=== PATIENT | male | born 1935 | race Caucasian/White ===

== ENCOUNTER 2019-11-11 08:03 | Outpatient (CLI) | payer MEDICARE, SELFPAY ==
[2019-11-11 08:49] LABS: Hematocrit 38.3 % (42.0-52.0); Mean Corpuscular HGB Conc 31.3 g/dl (32-36); Mean Corpuscular Hemoglobin 29.8 pg (26-34); Mean Platelet Volume 10.6 fl (7.4-10.4); Platelet Count Result 204 k/mm3 (150-375); Red Blood Count 4.03 M/mm3 (4.6-6.20); Red Cell Distribution Width 13.4 % (11.5-14.5); White Blood Count 9.2 K/mm3 (4.5-10.0)
[2019-11-11 09:00] LABS: Creatinine Urine 101.8 mg/dL; Total Protein Urine Random 14 mg/dL
[2019-11-11 09:05] LABS: Alanine Aminotransferase 28 U/L (4-50); Albumin Level 4.4 g/dL (3.5-5.1); Blood Urea Nitrogen 29 mg/dL (9-20); Calcium 9.8 mg/dL (8.4-10.2); Carbon Dioxide 28 mmol/L (22-30); Chloride 99 mmol/L (98-107); Cholesterol 158 mg/dL (0-200); Estimated Glomerular Filt Rate > 60; Glucose 143 mg/dL (75-110); HDL Direct 55 mg/dL; Potassium 4.5 mmol/L (3.4-5.0); Sodium 138 mmol/L (137-145); Triglycerides 129 mg/dL (<150)
[2019-11-11 09:16] LABS: LDL Cholesterol Direct 82 mg/dL
[2019-11-11 09:32] LABS: Vitamin D 25 Hydroxy 56.9 ng/mL
[2019-11-11 09:38] LABS: Parathyroid Intact 52.6 pg/mL (7.5-53.5)
== END 2019-11-11 08:04 | disposition home or self-care (01) ==
PROVIDERS: PCP Internal Medicine; Visit Provider Internal Medicine Nephrology
DX: N18.3 Chronic kidney disease, stage 3 (moderate) (principal); E78.5 Hyperlipidemia, unspecified
CPT/HCPCS: 36415; 80061; 80069; 82306; 82570; 83970; 84156; 84460; 85027

== ENCOUNTER 2019-12-07 08:22 | Outpatient (CLI) | payer MEDICARE, SELFPAY ==
[2019-12-07 09:16] LABS: Hemoglobin A1C 9.3 % (<5.7)
[2019-12-07 09:20] LABS: Alanine Aminotransferase 27 U/L (4-50); Albumin Level 4.4 g/dL (3.5-5.1); Alkaline Phosphatase 72 U/L (38-126); Aspartate Amino Transferase 21 U/L (17-59); Bilirubin,Total 0.5 mg/dL (0.2-1.3); Blood Urea Nitrogen 34 mg/dL (9-20); Calcium 9.6 mg/dL (8.4-10.2); Carbon Dioxide 29 mmol/L (22-30); Chloride 101 mmol/L (98-107); Cholesterol 146 mg/dL (0-200); Estimated Glomerular Filt Rate 53; Glucose 141 mg/dL (75-110); HDL Direct 53 mg/dL; Potassium 4.7 mmol/L (3.4-5.0); Sodium 140 mmol/L (137-145); Triglycerides 123 mg/dL (<150)
[2019-12-07 09:31] LABS: LDL Cholesterol Direct 77 mg/dL
[2019-12-07 09:32] LABS: Microalbumin Urine Random 19.7 mg/L (0-16.7)
[2019-12-07 09:35] LABS: Creatinine Urine 88.1 mg/dL; MALB Creatinine Ratio 22.4 mg/g (0-30)
[2019-12-07 12:08] LABS: Vitamin D 25 Hydroxy 42.1 ng/mL
== END 2019-12-07 08:23 | disposition home or self-care (01) ==
PROVIDERS: PCP Internal Medicine; Visit Provider Internal Medicine
DX: Z51.81 Encounter for therapeutic drug level monitoring (principal); E11.40 Type 2 diabetes mellitus with diabetic neuropathy, unspecified; I10 Essential (primary) hypertension; E78.5 Hyperlipidemia, unspecified; E55.9 Vitamin D deficiency, unspecified; Z79.899 Other long term (current) drug therapy
CPT/HCPCS: 36415; 80053; 80061; 82043; 82306; 83036

== ENCOUNTER 2020-04-02 11:21 | Emergency (ER) | payer MEDICARE, SELFPAY ==
--- NOTE | ~2020-04-02 | CT_ITS ---
EXAMINATION: CT abdomen pelvis w con DATE: 04/02/2020 13:33 INDICATION: Right flank pain TECHNIQUE: Computed tomography (CT) of the abdomen and pelvis was performed without intravenous contr ast. The dose-length product was 1274.40 mGy-cm. Automated exposure control and iterative reconstruct ion technique were employed. COMPARISON: None. FINDINGS: There is lower lobe atelectasis. Heart size normal. There is atherosclerosis of the aorta a nd coronary arteries. No significant pleural or pericardial effusion. Fatty infiltration of the liver. The spleen, pancreas, adrenal glands and right kidney are unremarkab le. There is a left renal cyst. Normal appendix. Nonobstructive bowel gas pattern. There is a fat-con taining umbilical hernia. Gallbladder is present. No lymphadenopathy. Mild-moderate lumbar spondylosi s. No acute osseous abnormality. IMPRESSION: 1. No acute abnormality of the abdomen or pelvis. Reviewed, dictated and finalized at location A.
[2020-04-02 11:22] VITALS: BP 169/78; PULSE 94; RESP 17; TEMP 36.6; O2SAT 99
--- NOTE | 2020-04-02 12:24 | ED.BACK ---
HPI - Back Pain/Injury General Chief Complaint: Back Pain/Injury <PREMA Varela Last Filed: 04/02/20 13:50> Stated Complaint: back pain <PREMA Varela Last Filed: 04/02/20 13:50> Time Seen by Provider: 04/02/20 11:32 <PREMA Varela Last Filed: 04/02/20 13:50> Source: patient <PREMA Varela Last Filed: 04/02/20 13:50> Mode of arrival: ambulatory <PREMA Varela Last Filed: 04/02/20 13:50> Limitations: no limitations <PREMA Varela Last Filed: 04/02/20 13:50> History of Present Illness HPI Narrative: Patient is an 85-year-old male who presents with low back pain localized to the left lower back flank region for the last 6 days nothing is made it better or worse sometimes rotates down into the lower back is all lumbar located denies any illness injury or trauma or similar occurrence has been taken Tylenol with some improvement. Denies recent illness or URI symptoms <PREMA Varela Last Filed: 04/02/20 13:50> Related Data Home Medications: Home Medications Medication Instructions Recorded Confirmed aspirin 81 mg tablet,delayed 81 mg PO DAILY 12/07/19 release furosemide 20 mg tablet 20 mg PO QAM 12/07/19 glipizide 5 mg tablet See Rx Instructions .ROUTE .COMPLEX 12/07/19 losartan 50 mg tablet 50 mg PO DAILY 12/07/19 metformin 500 mg tablet 500 mg PO BID 12/07/19 tamsulosin 0.4 mg capsule 0.4 mg PO DAILY 12/07/19 timolol maleate 0.5 % eye drops 1 drop EACH EYE Q12H 12/07/19 Super B Maxi Complex 04/02/20 Vitamin D3 2,000 unit DAILY 04/02/20 04/02/20 oxiconazole TOPICAL 04/02/20 <PREMA Varela Last Filed: 04/02/20 13:50> Allergies/Adverse Reactions: Allergies Allergy/AdvReac Type Severity Reaction Status Date / Time No Known Allergies Allergy Verified 04/02/20 11:45 <PREMA Varela Last Filed: 04/02/20 13:50> Review of Systems Review of Systems: All systems reviewed & are unremarkable except as noted in HPI and below <Pollo Armenta PA-C - Last Filed: 04/02/20 13:50> PMFSH Past Medical History Medical History: Medical History BPH (benign prostatic hyperplasia) Essential (primary) hypertension Obesity, unspecified (08/06/17) Other and unspecified hyperlipidemia Polyosteoarthritis, unspecified Type 2 diabetes mellitus with diabetic neuropathy, unspecified Vitamin D deficiency <Pollo Armenta PA-C - Last Filed: 04/02/20 13:50> Social History Social History: Social History Smoking status: Never smoker Second hand tobacco smoke exposure: No Alcohol intake: never Gender identity (if verbalized by the patient): Male <Pollo Armenta PA-C - Last Filed: 04/02/20 13:50> Exam Narrative: Exam Narrative: GENERAL: Well-appearing, well-nourished, and in no acute distress. HEAD: Normocephalic, atraumatic. EYES: PERRLA and EOMI. ENT: Nares clear, no rhinorrhea or epistaxis. Mucous membranes moist. CHEST: Clear to auscultation. No respiratory distress. No wheezes rales or rhonchi HEART: Regular rate and rhythm. No murmur heard. Normal peripheral pulses. ABDOMEN: Soft, nontender, distended, normal active bowel sounds. EXTREMITIES: Normal range of motion. No edema. No deformity or tenderness of the lower lumbar region SKIN: Warm, dry, no rash. NEURO: No focal deficits. Alert and oriented x3. Normal speech and gait PSYCH: Normal mood and affect. <Pollo Armenta PA-C - Last Filed: 04/02/20 13:50> Course Course Emergency Course: Patient in the room in no distress aware of case findings treatment plan and diagnosis felt appropriate for outpatient reevaluation <Pollo Armenta PA-C - Last Filed: 04/02/20 13:50> Vital Signs Vital signs: Vital Signs Temperature 36.6 C 04/02/20 11:22 Pulse Rate 94
[2020-04-02 12:47] LABS: Basophils Absolute Auto 0.1 K/mm3 (0.0-0.1); Basophils Percent Auto 0.8 % (0.2-1.2); Eosinophils Absolute Auto 0.5 K/mm3 (0-0.3); Eosinophils Percent Auto 6.1 % (0-4.4); Hematocrit 38.9 % (42.0-52.0); Hemoglobin 12.4 g/dL (14.0-18.0); Immature Granulocyte Absolute 0.03 K/mm3 (0.00-0.031); Immature Granulocyte Percent A 0.3 % (0-0.5); Lymphocytes Absolute Auto 1.96 K/mm3 (0.9-3.2); Lymphocytes Percent Auto 22.1 % (18.3-44.2); Mean Corpuscular HGB Conc 31.9 g/dl (32-36); Mean Corpuscular Hemoglobin 30.2 pg (26-34); Mean Corpuscular Volume 94.9 fl (80-100); Mean Platelet Volume 10.9 fl (7.4-10.4); Monocytes Absolute Auto 0.7 K/mm3 (0.1-0.6); Monocytes Percent Auto 8.2 % (2.6-8.5); Neutrophils Absolute Auto 5.5 K/mm3 (1.3-6.7); Neutrophils Percent Auto 62.5 % (45.5-73.1); Platelet Count Result 208 k/mm3 (150-375); Red Cell Distribution Width 13.5 % (11.5-14.5); White Blood Count 8.9 K/mm3 (4.5-10.0)
[2020-04-02 12:53] LABS: Add Urine Microscopic? NO; Appearance Urine Clear (Clear); Bilirubin Urine Negative (Negative); Blood Urine Negative (Negative); Color Urine Yellow (Yellow); Glucose Urine UA Negative (Negative); Ketones Urine Negative (Negative); Leukocyte Esterase Ur Negative LEU/UL (Negative); Nitrate Urine Negative (Negative); Protein Urine Negative (Negative); Specific Grav Ur 1.011 (1.001-1.035); Urobilinogen Urine Negative mg/dL (<2.0)
[2020-04-02 12:59] LABS: Alanine Aminotransferase 24 U/L (4-50); Albumin Level 4.5 g/dL (3.5-5.1); Alkaline Phosphatase 75 U/L (38-126); Aspartate Amino Transferase 22 U/L (17-59); Bilirubin,Total 0.5 mg/dL (0.2-1.3); Blood Urea Nitrogen 28 mg/dL (9-20); Calcium 9.5 mg/dL (8.4-10.2); Carbon Dioxide 24 mmol/L (22-30); Chloride 105 mmol/L (98-107); Estimated CRCL calculation 59 ml/min; Estimated Glomerular Filt Rate > 60; Glucose 195 mg/dL (75-110); Lipase 211 U/L (23-300); Potassium 4.8 mmol/L (3.4-5.0); Sodium 138 mmol/L (137-145)
[2020-04-02] MEDS: SODIUM CHLORIDE 0.9% IV 1,000 ML 999 ML IV CONT (14:02)
[2020-04-02 15:35] VITALS: BP 121/65; PULSE 75; RESP 16; O2SAT 100
== END 2020-04-02 15:47 | disposition home or self-care (01) ==
PROVIDERS: Emergency Medicine Emergency Medical Services; Emergency Provider Emergency Medicine; PCP Internal Medicine
DX: M54.5 Low back pain (principal); N40.0 Benign prostatic hyperplasia without lower urinary tract symptoms; I10 Essential (primary) hypertension; E66.9 Obesity, unspecified; Z68.33 Body mass index [BMI] 33.0-33.9, adult; E78.49 Other hyperlipidemia; E11.40 Type 2 diabetes mellitus with diabetic neuropathy, unspecified; Z79.84 Long term (current) use of oral hypoglycemic drugs; Z79.82 Long term (current) use of aspirin; E55.9 Vitamin D deficiency, unspecified
CPT/HCPCS: 36415; 74177; 80053; 81003; 83690; 85025; 96361; 96365; 99284; J0131; J7030; Q9967

== ENCOUNTER 2020-04-06 14:16 | Outpatient (RCR) | payer MEDICARE, SELFPAY ==
[2020-04-06 14:27] VITALS: BMI 34.9
[2020-04-06 14:28] VITALS: BMI 34.9
== END 2020-07-05 23:59 | disposition home or self-care (01) ==
LOC: ANHDMC 14:16
PROVIDERS: PCP Internal Medicine; Visit Provider Internal Medicine
DX: E11.65 Type 2 diabetes mellitus with hyperglycemia (principal); E66.9 Obesity, unspecified; Z71.3 Dietary counseling and surveillance
CPT/HCPCS: 97803

== ENCOUNTER 2020-04-12 07:58 | Outpatient (CLI) | payer MEDICARE, SELFPAY ==
[2020-04-12 08:48] LABS: Alanine Aminotransferase 24 U/L (4-50); Albumin Level 4.2 g/dL (3.5-5.1); Alkaline Phosphatase 64 U/L (38-126); Aspartate Amino Transferase 21 U/L (17-59); Bilirubin,Total 0.4 mg/dL (0.2-1.3); Blood Urea Nitrogen 39 mg/dL (9-20); Calcium 9.5 mg/dL (8.4-10.2); Carbon Dioxide 27 mmol/L (22-30); Chloride 106 mmol/L (98-107); Cholesterol 136 mg/dL (0-200); Estimated Glomerular Filt Rate 48; Glucose 117 mg/dL (75-110); HDL Direct 46 mg/dL; Potassium 4.5 mmol/L (3.4-5.0); Sodium 141 mmol/L (137-145); Triglycerides 113 mg/dL (<150)
[2020-04-12 08:59] LABS: LDL Cholesterol Direct 70 mg/dL
[2020-04-12 14:31] LABS: Hemoglobin A1C 8.8 % (<5.7)
== END 2020-04-12 07:59 | disposition home or self-care (01) ==
LOC: ANHLAB 07:59
PROVIDERS: PCP Internal Medicine; Visit Provider Nurse Practitioner
DX: E78.5 Hyperlipidemia, unspecified (principal); E11.65 Type 2 diabetes mellitus with hyperglycemia
CPT/HCPCS: 36415; 80053; 80061; 83036

== ENCOUNTER 2020-08-14 09:43 | Outpatient (CLI) | payer MEDICARE, SELFPAY ==
[2020-08-14 10:03] LABS: Hematocrit 35.7 % (42.0-52.0); Hemoglobin 11.7 g/dL (14.0-18.0)
[2020-08-14 10:15] LABS: Hemoglobin A1C 8.8 % (<5.7)
[2020-08-14 10:17] LABS: Alanine Aminotransferase 24 U/L (4-50); Albumin Level 4.1 g/dL (3.5-5.1); Alkaline Phosphatase 64 U/L (38-126); Anion Gap 7 mmol/L (8-16); Aspartate Amino Transferase 21 U/L (17-59); Bilirubin,Total 0.4 mg/dL (0.2-1.3); Blood Urea Nitrogen 26 mg/dL (9-20); Calcium 9.2 mg/dL (8.4-10.2); Carbon Dioxide 30 mmol/L (22-30); Chloride 103 mmol/L (98-107); Cholesterol 144 mg/dL (0-200); Estimated Glomerular Filt Rate 58; Glucose 120 mg/dL (75-110); HDL Direct 51 mg/dL; Potassium 4.4 mmol/L (3.4-5.0); Sodium 140 mmol/L (137-145); Triglycerides 119 mg/dL (<150)
[2020-08-14 10:28] LABS: LDL Cholesterol Direct 78 mg/dL
== END 2020-08-14 09:44 | disposition home or self-care (01) ==
LOC: ANHLAB 09:45
PROVIDERS: PCP Internal Medicine; Visit Provider Internal Medicine
DX: E87.5 Hyperkalemia (principal); E11.40 Type 2 diabetes mellitus with diabetic neuropathy, unspecified; D64.9 Anemia, unspecified; I10 Essential (primary) hypertension; Z51.81 Encounter for therapeutic drug level monitoring
CPT/HCPCS: 36415; 80053; 80061; 83036; 85014; 85018

== ENCOUNTER 2020-08-24 14:53 | Outpatient (RCR) | payer MEDICARE, SELFPAY ==
[2020-08-24 14:55] VITALS: BMI 34.7
[2020-08-24 15:00] VITALS: BMI 34.7
== END 2020-11-13 14:11 | disposition home or self-care (01) ==
LOC: ANHDMC 14:53
PROVIDERS: PCP Internal Medicine; Visit Provider Internal Medicine
DX: E11.65 Type 2 diabetes mellitus with hyperglycemia (principal); Z71.3 Dietary counseling and surveillance
CPT/HCPCS: 97803

== ENCOUNTER 2020-11-07 09:34 | Outpatient (CLI) | payer MEDICARE, SELFPAY ==
[2020-11-07 10:08] LABS: Potassium 4.9 mmol/L (3.4-5.0)
[2020-11-07 10:16] LABS: Total Protein Urine Random 10 mg/dL
[2020-11-07 10:36] LABS: Albumin Level 4.1 g/dL (3.5-5.1); Anion Gap 5 mmol/L (8-16); Blood Urea Nitrogen 36 mg/dL (9-20); Calcium 9.4 mg/dL (8.4-10.2); Carbon Dioxide 28 mmol/L (22-30); Chloride 103 mmol/L (98-107); Estimated Glomerular Filt Rate 53; Glucose 172 mg/dL (75-110); Phosphorus 4.1 mg/dL (2.5-4.5); Sodium 136 mmol/L (137-145)
== END 2020-11-07 09:35 | disposition home or self-care (01) ==
LOC: ANHLAB 09:36
PROVIDERS: PCP Internal Medicine; Visit Provider Internal Medicine Nephrology
DX: N18.30 Chronic kidney disease, stage 3 unspecified (principal)
CPT/HCPCS: 36415; 80069; 81050; 84156

== ENCOUNTER 2020-11-14 08:22 | Outpatient (CLI) | payer MEDICARE, SELFPAY ==
[2020-11-14 08:59] LABS: Hemoglobin A1C 8.4 % (<5.7)
[2020-11-14 09:09] LABS: Alanine Aminotransferase 23 U/L (4-50); Albumin Level 4.2 g/dL (3.5-5.1); Alkaline Phosphatase 69 U/L (38-126); Anion Gap 6 mmol/L (8-16); Aspartate Amino Transferase 23 U/L (17-59); Bilirubin,Total 0.5 mg/dL (0.2-1.3); Blood Urea Nitrogen 45 mg/dL (9-20); Calcium 9.4 mg/dL (8.4-10.2); Carbon Dioxide 26 mmol/L (22-30); Chloride 105 mmol/L (98-107); Estimated Glomerular Filt Rate 53; Glucose 121 mg/dL (75-110); Potassium 4.6 mmol/L (3.4-5.0); Sodium 137 mmol/L (137-145)
== END 2020-11-14 08:23 | disposition home or self-care (01) ==
LOC: ANHLAB 08:28
PROVIDERS: PCP Internal Medicine; Visit Provider Nurse Practitioner
DX: E11.22 Type 2 diabetes mellitus with diabetic chronic kidney disease (principal); E11.65 Type 2 diabetes mellitus with hyperglycemia; N18.30 Chronic kidney disease, stage 3 unspecified
CPT/HCPCS: 36415; 80053; 83036

== ENCOUNTER 2021-02-15 08:24 | Outpatient (CLI) | payer MEDICARE, SELFPAY ==
[2021-02-15 09:01] LABS: Hemoglobin A1C 8.6 % (<5.7)
[2021-02-15 09:06] LABS: Alanine Aminotransferase 22 U/L (4-50); Albumin Level 4.3 g/dL (3.5-5.1); Alkaline Phosphatase 61 U/L (38-126); Anion Gap 6 mmol/L (8-16); Aspartate Amino Transferase 23 U/L (17-59); Bilirubin,Total 0.3 mg/dL (0.2-1.3); Blood Urea Nitrogen 40 mg/dL (9-20); Calcium 9.4 mg/dL (8.4-10.2); Carbon Dioxide 27 mmol/L (22-30); Chloride 108 mmol/L (98-107); Cholesterol 148 mg/dL (0-200); Estimated Glomerular Filt Rate 48; Glucose 107 mg/dL (75-110); HDL Direct 51 mg/dL; Potassium 4.5 mmol/L (3.4-5.0); Sodium 141 mmol/L (137-145); Triglycerides 104 mg/dL (<150)
[2021-02-15 09:12] LABS: Creatinine Urine 85.3 mg/dL
[2021-02-15 09:17] LABS: LDL Cholesterol Direct 71 mg/dL
[2021-02-15 09:18] LABS: MALB Creatinine Ratio 19.3 mg/g (0-30); Microalbumin Urine Random 16.5 mg/L (0-16.7)
[2021-02-15 09:30] LABS: Vitamin D 25 Hydroxy 51.8 ng/mL
== END 2021-02-15 08:25 | disposition home or self-care (01) ==
PROVIDERS: PCP Internal Medicine; Visit Provider Nurse Practitioner
DX: E11.65 Type 2 diabetes mellitus with hyperglycemia (principal); E11.22 Type 2 diabetes mellitus with diabetic chronic kidney disease; E78.5 Hyperlipidemia, unspecified; E11.40 Type 2 diabetes mellitus with diabetic neuropathy, unspecified; E55.9 Vitamin D deficiency, unspecified; N18.30 Chronic kidney disease, stage 3 unspecified
CPT/HCPCS: 36415; 80053; 80061; 82043; 82306; 83036

== ENCOUNTER 2021-07-12 15:00 | Outpatient (RCR) | payer MEDICARE, SELFPAY ==
[2021-04-24 15:07] VITALS: BMI 34.3
[2021-07-12 15:08] VITALS: BMI 35.1
[2021-07-12 15:09] VITALS: BMI 35.1
== END 2021-07-16 12:18 | disposition home or self-care (01) ==
LOC: ANHDMC 15:00
PROVIDERS: PCP Internal Medicine; Visit Provider Internal Medicine
DX: E11.65 Type 2 diabetes mellitus with hyperglycemia (principal); Z71.3 Dietary counseling and surveillance; Z71.89 Other specified counseling
CPT/HCPCS: 97803; G0108

== ENCOUNTER 2021-09-04 09:27 | Outpatient (CLI) | payer MEDICARE, SELFPAY ==
[2021-09-04 10:38] LABS: Alanine Aminotransferase 28 U/L (4-50); Albumin Level 4.3 g/dL (3.5-5.1); Alkaline Phosphatase 69 U/L (38-126); Anion Gap 9 mmol/L (8-16); Aspartate Amino Transferase 25 U/L (17-59); Bilirubin,Total 0.7 mg/dL (0.2-1.3); Blood Urea Nitrogen 32 mg/dL (9-20); Calcium 9.4 mg/dL (8.4-10.2); Carbon Dioxide 27 mmol/L (22-30); Chloride 105 mmol/L (98-107); Cholesterol 162 mg/dL (0-200); Estimated Glomerular Filt Rate 53; Glucose 154 mg/dL (65-110); HDL Direct 55 mg/dL; Sodium 141 mmol/L (137-145); Triglycerides 142 mg/dL (<150)
[2021-09-04 10:49] LABS: LDL Cholesterol Direct 75 mg/dL
[2021-09-04 11:27] LABS: Hemoglobin A1C 8.8 % (<5.7)
== END 2021-09-04 09:28 | disposition home or self-care (01) ==
LOC: ANHLAB 09:32
PROVIDERS: PCP Internal Medicine; Visit Provider Internal Medicine
DX: E11.40 Type 2 diabetes mellitus with diabetic neuropathy, unspecified (principal); E78.5 Hyperlipidemia, unspecified; I10 Essential (primary) hypertension
CPT/HCPCS: 36415; 80053; 80061; 83036

== ENCOUNTER 2021-10-11 14:52 | Outpatient (RCR) | payer MEDICARE, SELFPAY | END 2021-10-11 16:38 | disposition home or self-care (01) | LOC: ANHDMC 14:52 | PROVIDERS: PCP Internal Medicine; Visit Provider Internal Medicine | DX: E11.65 Type 2 diabetes mellitus with hyperglycemia (principal); Z71.89 Other specified counseling | CPT/HCPCS: G0108 ==

== ENCOUNTER 2021-11-12 10:17 | Outpatient (CLI) | payer MEDICARE, SELFPAY ==
[2021-11-12 10:47] LABS: Hematocrit 34.1 % (42.0-52.0); Hemoglobin 10.8 g/dL (14.0-18.0); Mean Corpuscular HGB Conc 31.7 g/dl (32-36); Mean Corpuscular Hemoglobin 31.1 pg (26-34); Mean Corpuscular Volume 98.3 fl (80-100); Mean Platelet Volume 10.7 fl (7.4-10.4); Platelet Count Result 168 k/mm3 (150-375); Red Blood Count 3.47 M/mm3 (4.6-6.20); Red Cell Distribution Width 13.4 % (11.5-14.5); White Blood Count 7.6 K/mm3 (4.5-10.0)
[2021-11-12 10:51] LABS: Creatinine Urine 83.6 mg/dL; Total Protein Urine Random 10 mg/dL; Ur Ttl Prot Creatinine Ratio 0.12 mg/mg (0-0.20)
[2021-11-12 10:58] LABS: Albumin Level 4.1 g/dL (3.5-5.1); Anion Gap 7 mmol/L (8-16); Blood Urea Nitrogen 35 mg/dL (9-20); Calcium 9.3 mg/dL (8.4-10.2); Carbon Dioxide 27 mmol/L (22-30); Chloride 103 mmol/L (98-107); Estimated Glomerular Filt Rate 53; Glucose 218 mg/dL (65-110); Phosphorus 3.8 mg/dL (2.5-4.5); Potassium 4.9 mmol/L (3.4-5.0); Sodium 137 mmol/L (137-145)
[2021-11-12 12:17] LABS: Parathyroid Intact 57.3 pg/mL (7.5-53.5)
== END 2021-11-12 10:18 | disposition home or self-care (01) ==
PROVIDERS: PCP Internal Medicine; Visit Provider Internal Medicine Nephrology
DX: N18.30 Chronic kidney disease, stage 3 unspecified (principal)
CPT/HCPCS: 36415; 80069; 82570; 83970; 84156; 85027

== ENCOUNTER 2021-12-15 08:42 | Outpatient (CLI) | payer MEDICARE, SELFPAY ==
[2021-12-15 09:18] LABS: Alanine Aminotransferase 24 U/L (4-50); Albumin Level 4.2 g/dL (3.5-5.1); Alkaline Phosphatase 73 U/L (38-126); Anion Gap 3 mmol/L (8-16); Aspartate Amino Transferase 25 U/L (17-59); Bilirubin,Total 0.4 mg/dL (0.2-1.3); Blood Urea Nitrogen 34 mg/dL (9-20); Calcium 9.3 mg/dL (8.4-10.2); Carbon Dioxide 29 mmol/L (22-30); Chloride 107 mmol/L (98-107); Cholesterol 153 mg/dL (0-200); Estimated Glomerular Filt Rate 53; Glucose 129 mg/dL (65-110); HDL Direct 51 mg/dL; Potassium 4.4 mmol/L (3.4-5.0); Sodium 139 mmol/L (137-145); Triglycerides 107 mg/dL (<150)
[2021-12-15 09:29] LABS: LDL Cholesterol Direct 73 mg/dL
[2021-12-15 09:44] LABS: Hemoglobin A1C 9.1 % (<5.7)
[2021-12-15 10:21] LABS: Vitamin D 25 Hydroxy 54.6 ng/mL
[2021-12-15 11:48] LABS: Creatinine Urine 99.5 mg/dL
[2021-12-15 11:50] LABS: MALB Creatinine Ratio 61.1 mg/g (0-30); Microalbumin Urine Random 60.8 mg/L (0-16.7)
== END 2021-12-15 08:43 | disposition home or self-care (01) ==
PROVIDERS: PCP Internal Medicine; Visit Provider Nurse Practitioner
DX: E11.65 Type 2 diabetes mellitus with hyperglycemia (principal); E78.5 Hyperlipidemia, unspecified; E55.9 Vitamin D deficiency, unspecified
CPT/HCPCS: 36415; 80053; 80061; 82043; 82306; 83036

== ENCOUNTER 2022-04-18 14:30 | Outpatient (RCR) | payer MEDICARE, SELFPAY ==
[2022-04-18 14:29] VITALS: BMI 35.5
[2022-04-18 14:36] VITALS: BMI 35.5
== END 2022-05-15 11:39 | disposition home or self-care (01) ==
LOC: ANHDMC 14:30
PROVIDERS: PCP Internal Medicine; Visit Provider Internal Medicine
DX: E11.319 Type 2 diabetes mellitus with unspecified diabetic retinopathy without macular edema (principal); E11.65 Type 2 diabetes mellitus with hyperglycemia; Z71.89 Other specified counseling; Z71.3 Dietary counseling and surveillance
CPT/HCPCS: 97802; G0108

== ENCOUNTER 2022-05-17 08:09 | Outpatient (CLI) | payer MEDICARE, SELFPAY ==
[2022-05-17 19:44] LABS: Alanine Aminotransferase 27 U/L (6-50); Albumin Level 4.1 g/dL (3.5-5.1); Alkaline Phosphatase 74 U/L (38-126); Anion Gap 6 mmol/L (8-16); Aspartate Amino Transferase 22 U/L (17-59); Bilirubin,Total 0.4 mg/dL (0.2-1.3); Blood Urea Nitrogen 35 mg/dL (9-20); Calcium 9.1 mg/dL (8.4-10.2); Carbon Dioxide 28 mmol/L (22-30); Chloride 105 mmol/L (98-107); Cholesterol 152 mg/dL (0-200); Estimated Glomerular Filt Rate 52; Glucose 156 mg/dL (65-110); HDL Direct 48 mg/dL; Potassium 4.6 mmol/L (3.4-5.0); Sodium 139 mmol/L (137-145); Triglycerides 132 mg/dL (<150)
[2022-05-17 19:54] LABS: LDL Cholesterol Direct 69 mg/dL
[2022-05-17 20:03] LABS: Hemoglobin A1C 9.4 % (<5.7)
== END 2022-05-17 08:10 | disposition home or self-care (01) ==
LOC: ANHGOSHLAB 08:10
PROVIDERS: PCP Internal Medicine; Visit Provider Internal Medicine
DX: E11.65 Type 2 diabetes mellitus with hyperglycemia (principal); I10 Essential (primary) hypertension; E78.5 Hyperlipidemia, unspecified; E11.40 Type 2 diabetes mellitus with diabetic neuropathy, unspecified
CPT/HCPCS: 36415; 80053; 80061; 83036

== ENCOUNTER 2022-07-23 15:30 | Outpatient (RCR) | payer MEDICARE, SELFPAY | END 2022-08-12 10:22 | disposition home or self-care (01) | LOC: ANHDMC 15:30 | PROVIDERS: PCP Internal Medicine; Visit Provider Internal Medicine | DX: E11.319 Type 2 diabetes mellitus with unspecified diabetic retinopathy without macular edema (principal); E11.65 Type 2 diabetes mellitus with hyperglycemia; Z71.89 Other specified counseling | CPT/HCPCS: G0108 ==

== ENCOUNTER 2022-08-26 15:23 | Outpatient (CLI) | payer MEDICARE, SELFPAY ==
[2022-08-26 18:40] LABS: Hemoglobin A1C 10.7 % (<5.7)
[2022-08-26 18:58] LABS: Anion Gap 17 mmol/L (8-16); Blood Urea Nitrogen 36 mg/dL (9-20); Calcium 9.3 mg/dL (8.4-10.2); Carbon Dioxide 26 mmol/L (22-30); Chloride 99 mmol/L (98-107); Estimated Glomerular Filt Rate 48; Glucose 193 mg/dL (65-110); Potassium 4.3 mmol/L (3.4-5.0); Sodium 142 mmol/L (137-145)
== END 2022-08-26 15:24 | disposition home or self-care (01) ==
LOC: ANHGOSHLAB 15:24
PROVIDERS: PCP Internal Medicine; Visit Provider Nurse Practitioner
DX: E11.65 Type 2 diabetes mellitus with hyperglycemia (principal)
CPT/HCPCS: 36415; 80048; 83036

== ENCOUNTER 2022-09-10 15:22 | Outpatient (RCR) | payer MEDICARE, SELFPAY | END 2022-09-10 17:07 | disposition home or self-care (01) | LOC: ANHDMC 15:22 | PROVIDERS: PCP Internal Medicine; Visit Provider Internal Medicine | DX: E11.319 Type 2 diabetes mellitus with unspecified diabetic retinopathy without macular edema (principal); E11.65 Type 2 diabetes mellitus with hyperglycemia; Z71.89 Other specified counseling | CPT/HCPCS: G0108 ==

== ENCOUNTER 2022-11-11 11:57 | Outpatient (CLI) | payer MEDICARE, SELFPAY ==
[2022-11-11 17:39] LABS: Hemoglobin 11.3 g/dL (14.0-18.0); Mean Corpuscular HGB Conc 31.4 g/dl (32-36); Mean Corpuscular Hemoglobin 30.9 pg (26-34); Mean Corpuscular Volume 98.4 fl (80-100); Platelet Count Result 210 k/mm3 (150-375); Red Blood Count 3.66 M/mm3 (4.6-6.20); Red Cell Distribution Width 13.3 % (11.5-14.5); White Blood Count 9.4 K/mm3 (4.5-10.0)
[2022-11-11 18:45] LABS: Creatinine Urine 58.4 mg/dL; Total Protein Urine Random 8 mg/dL; Ur Ttl Prot Creatinine Ratio 0.14 mg/mg (0-0.20)
[2022-11-11 18:56] LABS: Albumin Level 4.1 g/dL (3.5-5.1); Anion Gap 6 mmol/L (8-16); Blood Urea Nitrogen 38 mg/dL (9-20); Calcium 8.9 mg/dL (8.4-10.2); Carbon Dioxide 29 mmol/L (22-30); Chloride 99 mmol/L (98-107); Estimated Glomerular Filt Rate 52; Glucose 246 mg/dL (65-110); Phosphorus 3.4 mg/dL (2.5-4.5); Potassium 4.7 mmol/L (3.4-5.0); Sodium 134 mmol/L (137-145)
[2022-11-11 19:12] LABS: Parathyroid Intact 82.5 pg/mL (7.5-53.5)
== END 2022-11-11 11:58 | disposition home or self-care (01) ==
LOC: ANHGOSHLAB 12:04
PROVIDERS: PCP Internal Medicine; Visit Provider Internal Medicine Nephrology
DX: N18.31 Chronic kidney disease, stage 3a (principal)
CPT/HCPCS: 36415; 80069; 82570; 83970; 84156; 85027

== ENCOUNTER 2022-11-17 12:12 | Emergency (ER) | payer MEDICARE, SELFPAY ==
[2022-11-17 12:22] VITALS: BP 132/74; PULSE 112; RESP 16; TEMP 36.7; O2SAT 98
--- NOTE | 2022-11-17 12:23 | ED.MALEGU ---
HPI - Male Genitourinary General Chief complaint: Urogenital-Male Stated complaint: TROUBLE URINATING/BURNING Time Seen by Provider: 11/17/22 12:15 Source: patient, family and RN notes reviewed History of Present Illness HPI Narrative: Patient is an 87-year-old male who presents to urgent care with his son with complaints of possible UTI. Patient states that yesterday he was having dysuria, pressure and increased urgent urination. Patient states he has only been able to urinate little amounts at a time. Denies any fevers, nausea or vomiting. Patient has not taken anything [id number] for his symptoms. Patient did have a UTI approximately 5 or 7 years ago and states that ?the symptoms were the same?. Patient does have diabetes and prostrate issues and takes Flomax. Patient states his blood sugars have not been as well controlled and his medication has been increased recently. Patient denies any abdominal pain or back pain. No other acute complaints. No acute distress noted. Patient and family aware of plan of care. Some parts of this dictation were generated by voice recognition software and may contain typographical and/or grammatical inaccuracies. Related Data Home Medications Medication Instructions Recorded Confirmed aspirin 81 mg tablet,delayed 81 mg PO DAILY 12/07/19 11/17/22 release Super B Maxi Complex 1 cap PO DAILY 04/02/20 11/17/22 Vitamin D3 2,000 unit PO DAILY 04/02/20 11/17/22 oxiconazole 1 % topical cream See Rx Instructions .Route .COMPLEX 04/02/20 11/17/22 timolol maleate 0.5 % eye drops 1 drp ophthalmic (eye) BID 09/13/21 11/17/22 triamcinolone acetonide 0.1 % 1 applic topical DAILY 09/13/21 11/17/22 topical cream betamethasone, augmented 0.05 % 1 applic topical BID 11/17/22 11/17/22 lotion fluocinonide 0.05 % topical cream 1 applic topical BID 11/17/22 11/17/22 tacrolimus 0.1 % topical ointment 1 applic topical BID 11/17/22 11/17/22 Allergies Allergy/AdvReac Type Severity Reaction Status Date / Time No Known Allergies Allergy Verified 11/17/22 12:24 Review of Systems Review of Systems: CONSTITUTIONAL: Denies fever, chills, or sweats. EYES: Denies visual changes, redness, or discharge. ENT: Denies rhinorrhea, congestion, sore throat, or otalgia. CARDIOVASCULAR: Denies chest pain, palpitations, or edema. RESPIRATORY: Denies cough or dyspnea. GASTROINTESTINAL: Denies abdominal pain, nausea, vomiting, or diarrhea. GENITOURINARY: Reports of dysuria, urinary frequency, suprapubic pressure and decreased urine amounts SKIN: Denies rash or itching. MUSCULOSKELETAL: Denies back pain, joint pain, or myalgia. NEUROLOGIC: Denies headache, numbness, or weakness. All other systems reviewed are negative, except as documented in HPI. [facility] Past Medical History Medical History (Updated 11/17/22 @ 12:34 by VENECIA Morin) BPH (benign prostatic hyperplasia) Essential (primary) hypertension Obesity, unspecified (08/06/17) Other and unspecified hyperlipidemia Polyosteoarthritis, unspecified Type 2 diabetes mellitus with diabetic neuropathy, unspecified Vitamin D deficiency Family History Family History Mother Patient's mother is in good health Sibling Patient's sister is in good health Father Family history of malignant neoplasm, Onset Age: 33 Patient's father is Social History Social History (Updated 09/03/22 @ 15:39 by Any Leonard [facility]) Smoking status: Never smoker Second hand tobacco smoke exposure: No Alcohol intake: never Substance use: never Substance use type: does not use Lack of Transportation: No Lack of Food: Never True Current Housing: I Have Housing Concerned About Future Housing: No Difficulty Paying Gas/Electric Bills: No Difficulty Paying for Meds: No Currently Unemployed: No Education: Master's Degree or Higher Difficulty w/ Childcare or Family Care:
== END 2022-11-17 12:43 | disposition home or self-care (01) ==
PROVIDERS: Emergency Provider Nurse Practitioner Family; PCP Internal Medicine
DX: N39.0 Urinary tract infection, site not specified (principal); N40.0 Benign prostatic hyperplasia without lower urinary tract symptoms; I10 Essential (primary) hypertension; E66.9 Obesity, unspecified; Z68.33 Body mass index [BMI] 33.0-33.9, adult; E11.40 Type 2 diabetes mellitus with diabetic neuropathy, unspecified; M13.0 Polyarthritis, unspecified; E55.9 Vitamin D deficiency, unspecified; E78.49 Other hyperlipidemia; Z79.82 Long term (current) use of aspirin
CPT/HCPCS: 81003; 87077; 87086; 87186; 99213; G0463

== ENCOUNTER 2023-01-15 09:17 | Outpatient (CLI) | payer MEDICARE, SELFPAY ==
[2023-01-15 20:14] LABS: Microalbumin Urine Random 10.9 mg/L (0-16.7)
[2023-01-15 20:17] LABS: Creatinine Urine 104.5 mg/dL; MALB Creatinine Ratio 10.4 mg/g (0-30)
[2023-01-15 20:24] LABS: Alanine Aminotransferase 29 U/L (6-50); Albumin Level 4.1 g/dL (3.5-5.1); Alkaline Phosphatase 79 U/L (38-126); Anion Gap 4 mmol/L (8-16); Aspartate Amino Transferase 46 U/L (17-59); Bilirubin,Total 0.5 mg/dL (0.2-1.3); Blood Urea Nitrogen 40 mg/dL (9-20); Calcium 9.1 mg/dL (8.4-10.2); Carbon Dioxide 30 mmol/L (22-30); Chloride 101 mmol/L (98-107); Cholesterol 157 mg/dL (0-200); Estimated Glomerular Filt Rate 48; Glucose 106 mg/dL (65-110); HDL Direct 54 mg/dL; Potassium 4.7 mmol/L (3.4-5.0); Sodium 135 mmol/L (137-145); Triglycerides 172 mg/dL (<150)
[2023-01-15 20:35] LABS: LDL Cholesterol Direct 71 mg/dL
== END 2023-01-15 09:18 | disposition home or self-care (01) ==
LOC: ANHGOSHLAB 09:18
PROVIDERS: PCP Internal Medicine; Visit Provider Internal Medicine
DX: E11.65 Type 2 diabetes mellitus with hyperglycemia (principal); I10 Essential (primary) hypertension; E78.5 Hyperlipidemia, unspecified
CPT/HCPCS: 36415; 80053; 80061; 82043; 83036

== ENCOUNTER 2023-06-19 08:05 | Outpatient (CLI) | payer MEDICARE, SELFPAY ==
[2023-06-19 11:32] LABS: Alanine Aminotransferase 31 U/L (6-50); Alkaline Phosphatase 67 U/L (38-126); Anion Gap 4 mmol/L (8-16); Aspartate Amino Transferase 49 U/L (17-59); Bilirubin,Total 0.4 mg/dL (0.2-1.3); Blood Urea Nitrogen 40 mg/dL (9-20); Calcium 9.5 mg/dL (8.4-10.2); Carbon Dioxide 30 mmol/L (22-30); Chloride 102 mmol/L (98-107); Cholesterol 151 mg/dL (0-200); Estimated Glomerular Filt Rate 48; Glucose 108 mg/dL (65-110); HDL Direct 51 mg/dL; Potassium 4.5 mmol/L (3.4-5.0); Sodium 136 mmol/L (137-145); Triglycerides 158 mg/dL (<150)
[2023-06-19 11:44] LABS: LDL Cholesterol Direct 76 mg/dL
[2023-06-19 12:27] LABS: Hemoglobin A1C 8.8 % (<5.7)
== END 2023-06-19 08:06 | disposition home or self-care (01) ==
LOC: ANHGOSHLAB 08:06
PROVIDERS: PCP Family Medicine; Visit Provider Nurse Practitioner
DX: E78.5 Hyperlipidemia, unspecified (principal); E11.9 Type 2 diabetes mellitus without complications
CPT/HCPCS: 36415; 80053; 80061; 83036

== ENCOUNTER 2023-07-10 15:30 | Outpatient (RCR) | payer MEDICARE, SELFPAY | END 2023-07-10 16:12 | disposition home or self-care (01) | LOC: ANHDMC 15:30 | PROVIDERS: PCP Internal Medicine; Visit Provider Nurse Practitioner | DX: E11.40 Type 2 diabetes mellitus with diabetic neuropathy, unspecified (principal); E11.65 Type 2 diabetes mellitus with hyperglycemia; Z71.89 Other specified counseling | CPT/HCPCS: G0108 ==

== ENCOUNTER 2023-09-10 17:38 | Emergency (ER) | payer MEDICARE, SELFPAY ==
--- NOTE | ~2023-09-10 | XR_ITS ---
EXAMINATION: XR chest 2V DATE: 09/10/2023 18:02 INDICATION: Chest congestion. TECHNIQUE: Frontal and lateral views of the chest were obtained. COMPARISON: CT abdomen and pelvis 04/02/2020 FINDINGS: There is no pneumonia, pleural effusion, or pneumothorax. The heart size is normal. IMPRESSION: 1. No acute cardiopulmonary disease. Reviewed, dictated and finalized at location E. MOLDING MACHINE TENDER
--- NOTE | 2023-09-10 17:41 | ED.URI ---
HPI - URI/Sore Throat General Chief Complaint: Upper Respiratory Infection Stated Complaint: COUGH/CONGESTION Time Seen by Provider: 09/10/23 17:41 Source: patient, family and RN notes reviewed History of Present Illness HPI Narrative: Patient is an 88-year-old male who presents to urgent care with his son with complaints of cough and chest congestion for 2 weeks. Patient states that he coughs more at night when lying down. Denies any chest pain. Denies any fever, shortness of breath, nausea or vomiting. Denies any known ill exposures with the exception of his son who had a cough recently. No other acute complaints. No acute distress noted. Patient aware of the plan of care. Some parts of this dictation were generated by voice recognition software and may contain typographical and/or grammatical inaccuracies. Related Data Home Medications Medication Instructions Recorded Confirmed aspirin 81 mg tablet,delayed 81 mg PO DAILY 12/07/19 02/12/23 release Vitamin D3 2,000 unit PO DAILY 04/02/20 02/12/23 oxiconazole 1 % topical cream See Rx Instructions .Route .COMPLEX 04/02/20 02/12/23 timolol maleate 0.5 % eye drops 1 drp ophthalmic (eye) BID 09/13/21 02/12/23 betamethasone, augmented 0.05 % 1 applic topical BID 11/17/22 02/12/23 lotion fluocinonide 0.05 % topical cream 1 applic topical BID 11/17/22 02/12/23 tacrolimus 0.1 % topical ointment 1 applic topical BID 11/17/22 02/12/23 Allergies Allergy/AdvReac Type Severity Reaction Status Date / Time No Known Allergies Allergy Verified 06/24/23 14:36 Review of Systems Review of Systems: CONSTITUTIONAL: Denies fever, chills, or sweats. EYES: Denies visual changes, redness, or discharge. ENT: Denies rhinorrhea, congestion, sore throat, or otalgia. CARDIOVASCULAR: Denies chest pain, palpitations, or edema. RESPIRATORY: Reports of cough and chest congestion GASTROINTESTINAL: Denies abdominal pain, nausea, vomiting, or diarrhea. GENITOURINARY: Denies dysuria or hematuria. SKIN: Denies rash or itching. MUSCULOSKELETAL: Denies back pain, joint pain, or myalgia. NEUROLOGIC: Denies headache, numbness, or weakness. All other systems reviewed are negative, except as documented in HPI. [facility] Past Medical History Medical History (Updated 09/10/23 @ 18:15 by VENECIA Morin) BPH (benign prostatic hyperplasia) Essential (primary) hypertension Obesity, unspecified (08/06/17) Other and unspecified hyperlipidemia Polyosteoarthritis, unspecified Type 2 diabetes mellitus with diabetic neuropathy, unspecified Vitamin D deficiency Family History Family History Mother Patient's mother is in good health Sibling Patient's sister is in good health Father Family history of malignant neoplasm, Onset Age: 33 Patient's father is Social History Social History Smoking status: Never smoker Second hand tobacco smoke exposure: No Alcohol intake: never Substance use: never Substance use type: does not use Lack of Transportation: No Lack of Food: Never True Current Housing: I Have Housing Concerned About Future Housing: No Difficulty Paying Gas/Electric Bills: No Difficulty Paying for Meds: No Currently Unemployed: No Education: Master's Degree or Higher Difficulty w/ Childcare or Family Care: No Gender identity (if verbalized by the patient): Male Spiritual care concerns: No Comments At the time of my signature, I reviewed and agree with the nursing past medical, surgical, social, and family history. There is no relevant family history pertinent to the patient complaint. Exam Narrative: GENERAL: This is a well-nourished, well-developed patient, in no apparent distress. HEAD: normocephalic, atraumatic. EYES: PERRL. Sclera clear/white. Vision is grossly intact. EARS: External ears normal, auditory canals cl
[2023-09-10 17:47] VITALS: BP 140/61; PULSE 105; RESP 16; TEMP 37.6; O2SAT 96
== END 2023-09-10 18:22 | disposition home or self-care (01) ==
PROVIDERS: Emergency Provider Nurse Practitioner Family; PCP Family Medicine
DX: R05.1 Acute cough (principal); N40.0 Benign prostatic hyperplasia without lower urinary tract symptoms; I10 Essential (primary) hypertension; E11.42 Type 2 diabetes mellitus with diabetic polyneuropathy; M13.0 Polyarthritis, unspecified; E78.49 Other hyperlipidemia; E66.9 Obesity, unspecified; Z68.33 Body mass index [BMI] 33.0-33.9, adult; Z79.82 Long term (current) use of aspirin
CPT/HCPCS: 71046; 99213; G0463

== ENCOUNTER 2023-09-15 19:13 | Emergency (ER) | payer MEDICARE, SELFPAY ==
[2023-09-15 19:27] VITALS: BP 124/76; PULSE 98; RESP 16; TEMP 36.9; O2SAT 100
--- NOTE | 2023-09-15 19:33 | ED.URI ---
HPI - URI/Sore Throat General Chief Complaint: Upper Respiratory Infection Stated Complaint: Chest congestion Time Seen by Provider: 09/15/23 19:30 Source: patient Mode of arrival: ambulatory Limitations: no limitations History of Present Illness HPI Narrative: Felipe is an 88-year-old male patient presenting to clinic today with complaints of chest congestion and shortness of breath with cough x2.5 weeks. He reports that his cough is nonproductive. No fever or chills. Was seen in the clinic 5 days ago and a chest x-ray was performed and was negative at that time for any pneumonia. Patient was diagnosed with a viral illness and was given prescription for Tessalon Perles for cough. He returns today with complaints of increasing chest congestion and cough and some mild shortness of breath. Is able to speak in full sentences. He denies any chest pain. MD elicited complaint: cough and other (Chest congestion, mild shortness of breath) Related Data Home Medications Medication Instructions Recorded Confirmed aspirin 81 mg tablet,delayed 81 mg PO DAILY 12/07/19 09/10/23 release Vitamin D3 2,000 unit PO DAILY 04/02/20 09/10/23 oxiconazole 1 % topical cream See Rx Instructions .Route .COMPLEX 04/02/20 09/10/23 timolol maleate 0.5 % eye drops 1 drp ophthalmic (eye) BID 09/13/21 09/10/23 betamethasone, augmented 0.05 % 1 applic topical BID 11/17/22 09/10/23 lotion fluocinonide 0.05 % topical cream 1 applic topical BID 11/17/22 09/10/23 tacrolimus 0.1 % topical ointment 1 applic topical BID 11/17/22 09/10/23 Allergies Allergy/AdvReac Type Severity Reaction Status Date / Time No Known Allergies Allergy Verified 09/10/23 18:38 Review of Systems Review of Systems: Pertinent positives per HPI. Patient denies any fever, chills, rash, headache, visual changes, dizziness, cough, shortness of breath, chest pain, palpitations, nausea, vomiting, diarrhea, constipation, abdominal pain, or any urinary issues. [facility] Past Medical History Medical History (Updated 09/15/23 @ 19:41 by Santana Cardona APRN) BPH (benign prostatic hyperplasia) Essential (primary) hypertension Obesity, unspecified (08/06/17) Other and unspecified hyperlipidemia Polyosteoarthritis, unspecified Type 2 diabetes mellitus with diabetic neuropathy, unspecified Vitamin D deficiency Family History Family History Mother Patient's mother is in good health Sibling Patient's sister is in good health Father Family history of malignant neoplasm, Onset Age: 33 Patient's father is Social History Social History Smoking status: Never smoker Second hand tobacco smoke exposure: No Alcohol intake: never Substance use: never Substance use type: does not use Lack of Transportation: No Lack of Food: Never True Current Housing: I Have Housing Concerned About Future Housing: No Difficulty Paying Gas/Electric Bills: No Difficulty Paying for Meds: No Currently Unemployed: No Education: Master's Degree or Higher Difficulty w/ Childcare or Family Care: No Gender identity (if verbalized by the patient): Male Spiritual care concerns: No Comments At the time of my signature, I reviewed and agree with the nursing past medical, surgical, social, and family history. There is no relevant family history pertinent to the patient complaint. Exam Narrative: General: Well-developed, obese, in no apparent distress Head: Normocephalic, atraumatic Eyes: Pupils equally round and reactive to light bilaterally, EOM intact, sclera and conjunctive clear, no discharge, lids normal Ears: TMs intact and clear, ear canals clear, no drainage, grossly hearing normal. Nose: Nares patent, clear discharge, no inflammation, no sinus tenderness. Mouth: Oral pharynx without lesions or masses, good dentition, MMM.
== END 2023-09-15 19:33 | disposition short-term general hospital (02) ==
PROVIDERS: Emergency Provider Nurse Practitioner Family; PCP Family Medicine
DX: R09.89 Other specified symptoms and signs involving the circulatory and respiratory systems (principal); R05.9 Cough, unspecified; R06.02 Shortness of breath; R60.0 Localized edema; N40.0 Benign prostatic hyperplasia without lower urinary tract symptoms; I10 Essential (primary) hypertension; E66.9 Obesity, unspecified; Z68.33 Body mass index [BMI] 33.0-33.9, adult; E78.49 Other hyperlipidemia; E11.42 Type 2 diabetes mellitus with diabetic polyneuropathy; E55.9 Vitamin D deficiency, unspecified; M15.9 Polyosteoarthritis, unspecified; Z79.82 Long term (current) use of aspirin
CPT/HCPCS: 99212; G0463

== ENCOUNTER 2023-09-15 19:51 | Emergency (ER) | payer MEDICARE, SELFPAY ==
--- NOTE | ~2023-09-15 | XR_ITS ---
EXAMINATION: XR chest 2V DATE: 09/15/2023 20:21 INDICATION: Cough and congestion TECHNIQUE: frontal and lateral views of the chest were obtained. COMPARISON: Chest radiograph dated 09/10/2023 FINDINGS: Unchanged mild streaky atelectasis/scarring at the left lung base. No new airspace opacities, pulmona ry edema, pleural effusion or pneumothorax. Heart size is normal with small left pericardial fat pad. Mild to moderate thoracic spondylosis. IMPRESSION: 1. Unchanged mild streaky left basilar atelectasis/scarring. No acute cardiopulmonary disease. Reviewed, dictated and finalized at location A. BER GASFITTER IMPRESSION: 1. Unchanged mild streaky left basilar atelectasis/scarring. No acute cardiopul monary disease.
--- NOTE | ~2023-09-15 | CT_ITS ---
EXAMINATION: CT diagnostic chest wo con DATE: 09/15/2023 21:52 INDICATION: cough TECHNIQUE: Computed tomography (CT) of the chest was performed without intravenous contrast. Addition al 3D reconstructions utilizing coronal maximum intensity projection (MIP) were performed. Automated exposure control and iterative reconstruction technique were employed. The dose-length product was 49 2.94 mGy-cm. COMPARISON: CT dated 04/02/2020 FINDINGS: There are some scattered respiratory motion. End seen is chronic discoid and dependent atelectasis/sc arring at the bilateral lower lobes and lingula. There is diffuse bronchial wall thickening and some scattered mucous plugging consistent with bronchitis. There are some additional mucous within the tra genie. There is AP flattening of the trachea and bilateral mainstem bronchi suggestive of tracheobronc homalacia. No pneumonia, pulmonary edema, pleural effusion or pneumothorax. Heart size is normal. Ath erosclerotic coronary artery calcifications. Aortic valve calcification. No pericardial effusion. Tho racic aorta is normal in caliber. Mild bilateral hilar lymphadenopathy which is likely reactive.. Mil d bilateral gynecomastia. Diffuse hepatic steatosis. Visualized upper abdomen is otherwise unremarkab le. There are bridging osteophytes at multiple levels consistent with diffuse idiopathic skeletal hyp erostosis (DISH). IMPRESSION: 1. Diffuse bronchial wall thickening with some scattered mucous plugging consistent with bronchitis. 2. Likely reactive mild bilateral hilar lymphadenopathy. 3. AP flattening of the trachea and bilateral mainstem bronchi which could be seen with tracheobronch omalacia. Reviewed, dictated and finalized at location A. AND TAPE MACHINE TENDER IMPRESSION: 1. Diffuse bronchial wall thickening with some scattered mucous plugging consis tent with bronchitis. 2. Likely reactive mild bilateral hilar lymphadenopathy. 3. AP flattening of the trachea and bilateral mainstem bronchi which could be s een with tracheobronchomalacia.
--- NOTE | 2023-09-15 19:56 | ECG_ITS ---
Measurements Intervals [place] Rate: 100 P: 76 DC: 179 QRS: 33 QRSD: 129 T: 37 QT: 367 QTc: 474 Interpretive Statements SINUS TACHYCARDIA RIGHT BUNDLE BRANCH BLOCK BASELINE ARTIFACT- I, III, AVR, AVL, AVF, V2-V3, V6 ABNORMAL ECG NO PREVIOUS ECG AVAILABLE FOR COMPARISON Electronically Signed On 09-16-2023 6:07:24 [place] by Christopher Aguirre D.O.
[2023-09-15 20:09] VITALS: BP 147/70; PULSE 102; RESP 18; TEMP 36.8; O2SAT 97
[2023-09-15 21:23] VITALS: BP 158/98; PULSE 100; RESP 22; O2SAT 100
[2023-09-15 21:41] LABS: Basophils Absolute Auto 0.1 K/mm3 (0.0-0.1); Basophils Percent Auto 0.7 % (0.2-1.2); Eosinophils Absolute Auto 0.4 K/mm3 (0-0.3); Eosinophils Percent Auto 3.7 % (0-4.4); Hematocrit 34.6 % (42.0-52.0); Immature Granulocyte Absolute 0.03 K/mm3 (0.00-0.031); Immature Granulocyte Percent A 0.3 % (0-0.5); Lymphocytes Absolute Auto 2.06 K/mm3 (0.9-3.2); Lymphocytes Percent Auto 20.5 % (18.3-44.2); Mean Corpuscular HGB Conc 31.8 g/dl (32-36); Mean Corpuscular Volume 94.3 fl (80-100); Mean Platelet Volume 10.2 fl (7.4-10.4); Monocytes Absolute Auto 1.2 K/mm3 (0.1-0.6); Monocytes Percent Auto 12.3 % (2.6-8.5); Neutrophils Absolute Auto 6.3 K/mm3 (1.3-6.7); Neutrophils Percent Auto 62.5 % (45.5-73.1); Platelet Count Result 219 k/mm3 (150-375); Red Blood Count 3.67 M/mm3 (4.6-6.20); Red Cell Distribution Width 13.4 % (11.5-14.5)
[2023-09-15 22:06] LABS: Alanine Aminotransferase 51 U/L (6-50); Albumin Level 4.1 g/dL (3.5-5.1); Alkaline Phosphatase 94 U/L (38-126); Anion Gap 10 mmol/L (8-16); Aspartate Amino Transferase 43 U/L (17-59); Bilirubin,Total 0.7 mg/dL (0.2-1.3); Blood Urea Nitrogen 40 mg/dL (9-20); Calcium 9.2 mg/dL (8.4-10.2); Carbon Dioxide 29 mmol/L (22-30); Chloride 97 mmol/L (98-107); Estimated CRCL calculation 44 ml/min; Estimated Glomerular Filt Rate 48; Glucose 192 mg/dL (65-110); Potassium 4.4 mmol/L (3.4-5.0); Sodium 136 mmol/L (137-145)
[2023-09-15 22:15] LABS: NT Pro B Type Natriuretic Pept 227 pg/mL (19.9-100)
[2023-09-15 22:23] LABS: Procalcitonin 0.3 ng/mL
[2023-09-15] MEDS: ALBUTEROL SULFATE NEB 2.5 MG/3 ML INH INHALATION (22:40)
[2023-09-15] MEDS: DOXYCYCLINE HYCLATE 100 MG TABLET PO (22:42)
[2023-09-15] MEDS: BENZONATATE 100 MG CAPSULE PO (22:42)
[2023-09-15 22:45] VITALS: PULSE 106; RESP 22
[2023-09-15 22:57] VITALS: PULSE 104; RESP 22
--- NOTE | 2023-09-15 23:05 | ED.URI ---
HPI - URI/Sore Throat General Chief Complaint: Upper Respiratory Infection Stated Complaint: URI Time Seen by Provider: 09/15/23 21:16 History of Present Illness HPI Narrative: Patient brought to the emergency department by family with concern for persistent cough. He was seen at urgent care 4 days ago. Given Tessalon Perles but told to take Mucinex during the day and Tessalon Perles at night. He has waxing and waning episodes of cough. Denies shortness of breath and generalized fatigue. Also denies fevers and chills. Chest discomfort at times with the cough. Family is concerned the cough has not gotten better. Related Data Home Medications Medication Instructions Recorded Confirmed aspirin 81 mg tablet,delayed 81 mg PO DAILY 12/07/19 09/10/23 release Vitamin D3 2,000 unit PO DAILY 04/02/20 09/10/23 oxiconazole 1 % topical cream See Rx Instructions .Route .COMPLEX 04/02/20 09/10/23 timolol maleate 0.5 % eye drops 1 drp ophthalmic (eye) BID 09/13/21 09/10/23 betamethasone, augmented 0.05 % 1 applic topical BID 11/17/22 09/10/23 lotion fluocinonide 0.05 % topical cream 1 applic topical BID 11/17/22 09/10/23 tacrolimus 0.1 % topical ointment 1 applic topical BID 11/17/22 09/10/23 Allergies Allergy/AdvReac Type Severity Reaction Status Date / Time No Known Allergies Allergy Verified 09/15/23 20:12 Review of Systems Review of Systems: Negative except what is documented in the [facility] Past Medical History Medical History (Updated 09/16/23 @ 00:01 by Destinee Rosado) BPH (benign prostatic hyperplasia) Essential (primary) hypertension Obesity, unspecified (08/06/17) Other and unspecified hyperlipidemia Polyosteoarthritis, unspecified Type 2 diabetes mellitus with diabetic neuropathy, unspecified Vitamin D deficiency Family History Family History Mother Patient's mother is in good health Sibling Patient's sister is in good health Father Family history of malignant neoplasm, Onset Age: 33 Patient's father is Social History Social History Smoking status: Never smoker Second hand tobacco smoke exposure: No Alcohol intake: never Substance use: never Substance use type: does not use Lack of Transportation: No Lack of Food: Never True Current Housing: I Have Housing Concerned About Future Housing: No Difficulty Paying Gas/Electric Bills: No Difficulty Paying for Meds: No Currently Unemployed: No Education: Master's Degree or Higher Difficulty w/ Childcare or Family Care: No Gender identity (if verbalized by the patient): Male Spiritual care concerns: No Exam Narrative: GENERAL: Well-appearing, well-nourished, and in no acute distress. HEAD: Normocephalic, atraumatic. EYES: PERRLA and EOMI. ENT: Nares clear, no rhinorrhea or epistaxis. Mucous membranes moist. NECK: Supple. CHEST: Clear to auscultation. No respiratory distress. HEART: Regular rate and rhythm. ABDOMEN: Soft, nontender, nondistended. EXTREMITIES: Normal range of motion. No edema. SKIN: Warm, dry, no rash. NEURO: No focal deficits. Alert and oriented x3. PSYCH: Normal mood and affect. Course Course Emergency Course: Patient had chest x-ray at urgent care that was negative. Symptoms persistent. CT chest ordered and shows mucous plugging consistent with bronchitis. Due to patient's age and severity of cough we will treat as bacterial bronchitis. The family is confused about what medications he should be taking when. Ordered an albuterol inhaler and Tessalon Perles to see if it will improve his cough. Shared decision making with patient and family that he does not meet admission criteria currently Vital Signs Vital signs: Vital Signs Temperature 36.8 C 09/15/23 20:09 Pulse Rate 102 H 09/15/23 20:09 Respiratory Rate 18 09/15/23 20:09
[2023-09-15 23:24] VITALS: BP 155/61; PULSE 104; RESP 22; O2SAT 96
--- NOTE | 2023-09-15 23:53 | PC.NURSE ---
Patient did a walking pulse ox test and spo2 was at 95% the whole time.
== END 2023-09-16 00:14 | disposition home or self-care (01) ==
PROVIDERS: Emergency Provider Emergency Medicine; PCP Family Medicine
DX: J40 Bronchitis, not specified as acute or chronic (principal); I10 Essential (primary) hypertension; E66.9 Obesity, unspecified; Z68.33 Body mass index [BMI] 33.0-33.9, adult; E78.49 Other hyperlipidemia; E11.40 Type 2 diabetes mellitus with diabetic neuropathy, unspecified; E55.9 Vitamin D deficiency, unspecified; N40.0 Benign prostatic hyperplasia without lower urinary tract symptoms; M19.90 Unspecified osteoarthritis, unspecified site; Z79.82 Long term (current) use of aspirin; Z79.85 Long-term (current) use of injectable non-insulin antidiabetic drugs; Z79.84 Long term (current) use of oral hypoglycemic drugs; R00.0 Tachycardia, unspecified; I45.10 Unspecified right bundle-branch block
CPT/HCPCS: 36415; 71046; 71250; 80053; 83880; 84145; 85025; 93005; 94640; 99284; A9270

== ENCOUNTER 2023-10-09 09:53 | Outpatient (CLI) | payer MEDICARE, SELFPAY ==
[2023-10-09 13:41] LABS: Hemoglobin A1C 8.5 % (<5.7)
== END 2023-10-09 09:54 | disposition home or self-care (01) ==
LOC: ANHGOSHLAB 09:54
PROVIDERS: PCP Family Medicine; Visit Provider Family Medicine
DX: E11.40 Type 2 diabetes mellitus with diabetic neuropathy, unspecified (principal); E66.9 Obesity, unspecified; E55.9 Vitamin D deficiency, unspecified; E11.22 Type 2 diabetes mellitus with diabetic chronic kidney disease; I12.9 Hypertensive chronic kidney disease with stage 1 through stage 4 chronic kidney disease, or unspecified chronic kidney disease; N18.31 Chronic kidney disease, stage 3a
CPT/HCPCS: 36415; 83036

== ENCOUNTER 2023-10-23 16:00 | Outpatient (RCR) | payer MEDICARE, SELFPAY | END 2023-10-23 17:45 | disposition home or self-care (01) | LOC: ANHDMC 16:00 | PROVIDERS: PCP Family Medicine; Visit Provider Nurse Practitioner | DX: E11.40 Type 2 diabetes mellitus with diabetic neuropathy, unspecified (principal); E11.65 Type 2 diabetes mellitus with hyperglycemia; Z71.89 Other specified counseling | CPT/HCPCS: G0108 ==

== ENCOUNTER 2023-10-31 14:57 | Outpatient (CLI) | payer MEDICARE, SELFPAY ==
[2023-10-31 18:48] LABS: Hematocrit 36.5 % (42.0-52.0); Mean Corpuscular HGB Conc 30.1 g/dl (32-36); Mean Corpuscular Hemoglobin 29.6 pg (26-34); Mean Corpuscular Volume 98.4 fl (80-100); Platelet Count Result 222 k/mm3 (150-375); Red Blood Count 3.71 M/mm3 (4.6-6.20); White Blood Count 10.5 K/mm3 (4.5-10.0)
[2023-10-31 18:54] LABS: Albumin Level 4.1 g/dL (3.5-5.1); Anion Gap 6 mmol/L (8-16); Blood Urea Nitrogen 35 mg/dL (9-20); Calcium 9.4 mg/dL (8.4-10.2); Carbon Dioxide 31 mmol/L (22-30); Chloride 100 mmol/L (98-107); Estimated Glomerular Filt Rate 48; Glucose 201 mg/dL (65-110); Phosphorus 3.9 mg/dL (2.5-4.5); Potassium 5.3 mmol/L (3.4-5.0); Sodium 137 mmol/L (137-145)
[2023-10-31 18:55] LABS: Creatinine Urine 105.7 mg/dL; Total Protein Urine Random 6 mg/dL; Ur Ttl Prot Creatinine Ratio 0.06 mg/mg (0-0.20)
[2023-10-31 19:04] LABS: Parathyroid Intact 90.5 pg/mL (7.5-53.5)
[2023-10-31 19:15] LABS: Vitamin D 25 Hydroxy 49.3 ng/mL
== END 2023-10-31 14:58 | disposition home or self-care (01) ==
LOC: ANHGOSHLAB 14:59
PROVIDERS: PCP Family Medicine; Visit Provider Internal Medicine Nephrology
DX: E55.9 Vitamin D deficiency, unspecified (principal); N18.31 Chronic kidney disease, stage 3a
CPT/HCPCS: 36415; 80069; 82306; 82570; 83970; 84156; 85027

== ENCOUNTER 2024-02-04 09:49 | Outpatient (CLI) | payer MEDICARE, SELFPAY ==
[2024-02-04 12:17] LABS: Basophils Absolute Auto 0.1 K/mm3 (0.0-0.1); Basophils Percent Auto 0.8 % (0.2-1.2); Eosinophils Absolute Auto 0.6 K/mm3 (0-0.3); Eosinophils Percent Auto 6.8 % (0-4.4); Hematocrit 37.2 % (42.0-52.0); Hemoglobin 11.4 g/dL (14.0-18.0); Immature Granulocyte Absolute 0.03 K/mm3 (0.00-0.031); Immature Granulocyte Percent A 0.3 % (0-0.5); Lymphocytes Absolute Auto 2.56 K/mm3 (0.9-3.2); Lymphocytes Percent Auto 27.7 % (18.3-44.2); Mean Corpuscular HGB Conc 30.6 g/dl (32-36); Mean Corpuscular Hemoglobin 29.7 pg (26-34); Mean Corpuscular Volume 96.9 fl (80-100); Mean Platelet Volume 11.4 fl (7.4-10.4); Monocytes Absolute Auto 0.9 K/mm3 (0.1-0.6); Monocytes Percent Auto 10.1 % (2.6-8.5); Neutrophils Percent Auto 54.3 % (45.5-73.1); Platelet Count Result 193 k/mm3 (150-375); Red Blood Count 3.84 M/mm3 (4.6-6.20); Red Cell Distribution Width 14.6 % (11.5-14.5); White Blood Count 9.2 K/mm3 (4.5-10.0)
[2024-02-04 12:31] LABS: Alanine Aminotransferase 28 U/L (6-50); Albumin Level 4.1 g/dL (3.5-5.1); Alkaline Phosphatase 71 U/L (38-126); Anion Gap 4 mmol/L (4-12); Aspartate Amino Transferase 44 U/L (17-59); Bilirubin,Total 0.6 mg/dL (0.2-1.3); Blood Urea Nitrogen 36 mg/dL (9-20); Calcium 9.8 mg/dL (8.4-10.2); Carbon Dioxide 31 mmol/L (22-30); Chloride 105 mmol/L (98-107); Cholesterol 146 mg/dL (0-200); Estimated Glomerular Filt Rate 52; Glucose 93 mg/dL (65-110); HDL Direct 54 mg/dL; Potassium 4.6 mmol/L (3.4-5.0); Sodium 140 mmol/L (137-145); Triglycerides 130 mg/dL (<150)
[2024-02-04 12:46] LABS: LDL Cholesterol Direct 77 mg/dL
[2024-02-04 13:08] LABS: Creatinine Urine 103.7 mg/dL
[2024-02-04 22:24] LABS: Iron 59 ug/dL (49-181)
[2024-02-04 22:33] LABS: Percent Iron Saturation 15 % (20-50)
== END 2024-02-04 09:50 | disposition home or self-care (01) ==
PROVIDERS: PCP Family Medicine; Visit Provider Nurse Practitioner Family
DX: E78.5 Hyperlipidemia, unspecified (principal); E11.40 Type 2 diabetes mellitus with diabetic neuropathy, unspecified; E11.22 Type 2 diabetes mellitus with diabetic chronic kidney disease; N18.30 Chronic kidney disease, stage 3 unspecified; D64.9 Anemia, unspecified
CPT/HCPCS: 36415; 80053; 80061; 82043; 82728; 83036; 83540; 83550; 85025

== ENCOUNTER 2024-04-06 16:00 | Outpatient (RCR) | payer MEDICARE, SELFPAY ==
[2024-03-18 14:57] VITALS: BMI 32.9
== END 2024-04-06 16:51 | disposition home or self-care (01) ==
LOC: ANHDMC 16:00
PROVIDERS: PCP Family Medicine; Visit Provider Nurse Practitioner
DX: E11.40 Type 2 diabetes mellitus with diabetic neuropathy, unspecified (principal); E11.65 Type 2 diabetes mellitus with hyperglycemia; Z71.89 Other specified counseling; Z71.3 Dietary counseling and surveillance
CPT/HCPCS: 97802; G0108

== ENCOUNTER 2024-05-10 11:59 | Outpatient (RCR) | payer MEDICARE, SELFPAY ==
[2024-05-10 12:26] VITALS: BMI 33.3
== END 2024-07-07 15:04 | disposition home or self-care (01) ==
LOC: ANHWOC 11:59
PROVIDERS: PCP Family Medicine; Visit Provider Nurse Practitioner Family
DX: S81.802D Unspecified open wound, left lower leg, subsequent encounter (principal)
CPT/HCPCS: 99213; A9270; G0463

== ENCOUNTER 2024-05-20 10:43 | Outpatient (CLI) | payer MEDICARE, SELFPAY ==
[2024-05-20 20:29] LABS: Albumin Level 4.1 g/dL (3.5-5.1); Anion Gap 8 mmol/L (4-12); Blood Urea Nitrogen 40 mg/dL (9-20); Calcium 9.4 mg/dL (8.4-10.2); Carbon Dioxide 27 mmol/L (22-30); Chloride 101 mmol/L (98-107); Estimated Glomerular Filt Rate 41; Glucose 227 mg/dL (65-110); Phosphorus 3.8 mg/dL (2.5-4.5); Potassium 4.9 mmol/L (3.4-5.0); Sodium 136 mmol/L (137-145)
[2024-05-20 20:30] LABS: Parathyroid Intact 104.6 pg/mL (7.5-53.5)
[2024-05-20 20:34] LABS: Hematocrit 35.8 % (42.0-52.0); Hemoglobin 11.1 g/dL (14.0-18.0); Mean Corpuscular Hemoglobin 30.7 pg (26-34); Mean Corpuscular Volume 98.9 fl (80-100); Mean Platelet Volume 11.5 fl (7.4-10.4); Platelet Count Result 187 k/mm3 (150-375); Red Blood Count 3.62 M/mm3 (4.6-6.20); Red Cell Distribution Width 14.1 % (11.5-14.5); White Blood Count 9.7 K/mm3 (4.5-10.0)
[2024-05-20 20:44] LABS: Creatinine Urine 100.2 mg/dL
[2024-05-20 21:17] LABS: Total Protein Urine Random < 5 mg/dL; Ur Ttl Prot Creatinine Ratio < 0.05 mg/mg (0-0.20)
[2024-05-20 21:23] LABS: Vitamin D 25 Hydroxy 48.6 ng/mL
== END 2024-05-20 10:44 | disposition home or self-care (01) ==
LOC: ANHGOSHLAB 10:44
PROVIDERS: PCP Family Medicine; Visit Provider Internal Medicine Nephrology
DX: I12.9 Hypertensive chronic kidney disease with stage 1 through stage 4 chronic kidney disease, or unspecified chronic kidney disease (principal); N18.31 Chronic kidney disease, stage 3a; E11.65 Type 2 diabetes mellitus with hyperglycemia; E55.9 Vitamin D deficiency, unspecified
CPT/HCPCS: 36415; 80069; 82306; 82570; 83970; 84156; 85027

== ENCOUNTER 2024-06-08 16:00 | Outpatient (RCR) | payer MEDICARE, SELFPAY ==
[2024-04-27 15:00] VITALS: BMI 33.1
== END 2024-07-16 08:54 | disposition home or self-care (01) ==
LOC: ANHDMC 16:00
PROVIDERS: PCP Family Medicine; Visit Provider Nurse Practitioner
DX: E11.40 Type 2 diabetes mellitus with diabetic neuropathy, unspecified (principal); E11.65 Type 2 diabetes mellitus with hyperglycemia; Z71.3 Dietary counseling and surveillance; H91.90 Unspecified hearing loss, unspecified ear; Z71.89 Other specified counseling
CPT/HCPCS: 97803; G0108

== ENCOUNTER 2024-07-07 14:57 | Outpatient (CLI) | payer MEDICARE, SELFPAY ==
[2024-07-07 21:50] LABS: Anion Gap 10 mmol/L (4-12); Blood Urea Nitrogen 29 mg/dL (9-20); Calcium 9.4 mg/dL (8.4-10.2); Carbon Dioxide 30 mmol/L (22-30); Chloride 98 mmol/L (98-107); Estimated Glomerular Filt Rate 52; Glucose 116 mg/dL (65-110); Potassium 4.4 mmol/L (3.4-5.0); Sodium 138 mmol/L (137-145)
== END 2024-07-07 14:58 | disposition home or self-care (01) ==
LOC: ANHGOSHLAB 14:58
PROVIDERS: PCP Family Medicine; Visit Provider Internal Medicine Nephrology
DX: N18.31 Chronic kidney disease, stage 3a (principal)
CPT/HCPCS: 36415; 80048

== ENCOUNTER 2024-08-18 08:33 | Outpatient (CLI) | payer MEDICARE, SELFPAY ==
[2024-08-18 17:18] LABS: Creatinine Urine 89.3 mg/dL
[2024-08-18 17:21] LABS: MALB Creatinine Ratio 22.8 mg/g (0-30); Microalbumin Urine Random 20.4 mg/L (0-16.7)
[2024-08-18 17:34] LABS: Alanine Aminotransferase 27 U/L (6-50); Albumin Level 4.2 g/dL (3.5-5.1); Alkaline Phosphatase 74 U/L (38-126); Anion Gap 8 mmol/L (4-12); Aspartate Amino Transferase 60 U/L (17-59); Bilirubin,Total 0.6 mg/dL (0.2-1.3); Blood Urea Nitrogen 41 mg/dL (9-20); Calcium 9.4 mg/dL (8.4-10.2); Carbon Dioxide 29 mmol/L (22-30); Chloride 101 mmol/L (98-107); Cholesterol 148 mg/dL (0-200); Estimated Glomerular Filt Rate 52; Glucose 94 mg/dL (65-110); HDL Direct 54 mg/dL; Potassium 4.7 mmol/L (3.4-5.0); Sodium 138 mmol/L (137-145); Triglycerides 138 mg/dL (<150)
[2024-08-18 18:01] LABS: LDL Cholesterol Direct 64 mg/dL
[2024-08-18 20:23] LABS: Hemoglobin A1C 7.9 % (<5.7)
== END 2024-08-18 08:34 | disposition home or self-care (01) ==
LOC: ANHGOSHLAB 08:34
PROVIDERS: PCP Family Medicine; Visit Provider Family Medicine
DX: E11.9 Type 2 diabetes mellitus without complications (principal)
CPT/HCPCS: 36415; 80053; 80061; 82043; 83036

== ENCOUNTER 2024-09-09 15:55 | Outpatient (RCR) | payer MEDICARE, SELFPAY | END 2024-11-29 09:48 | disposition home or self-care (01) | LOC: ANHDMC 15:55 | PROVIDERS: PCP Family Medicine; Visit Provider Nurse Practitioner | DX: E11.40 Type 2 diabetes mellitus with diabetic neuropathy, unspecified (principal); E11.65 Type 2 diabetes mellitus with hyperglycemia; Z71.89 Other specified counseling | CPT/HCPCS: G0108 ==

== ENCOUNTER 2025-01-13 08:31 | Outpatient (CLI) | payer MEDICARE, SELFPAY ==
[2025-01-13 13:26] LABS: Hemoglobin A1C 8.1 % (<5.7)
[2025-01-13 13:33] LABS: Hematocrit 35.9 % (42.0-52.0); Hemoglobin 11.1 g/dL (14.0-18.0); Mean Corpuscular HGB Conc 30.9 g/dl (32-36); Mean Corpuscular Hemoglobin 30.2 pg (26-34); Mean Corpuscular Volume 97.8 fl (80-100); Mean Platelet Volume 11.2 fl (7.4-10.4); Platelet Count Result 198 k/mm3 (150-375); Red Blood Count 3.67 M/mm3 (4.6-6.20); Red Cell Distribution Width 13.8 % (11.5-14.5); White Blood Count 9.5 K/mm3 (4.5-10.0)
[2025-01-13 13:53] LABS: Alanine Aminotransferase 29 U/L (6-50); Albumin Level 4.3 g/dL (3.5-5.1); Alkaline Phosphatase 79 U/L (38-126); Anion Gap 8 mmol/L (4-12); Aspartate Amino Transferase 46 U/L (17-59); Bilirubin,Total 0.6 mg/dL (0.2-1.3); Blood Urea Nitrogen 45 mg/dL (9-20); Calcium 9.2 mg/dL (8.4-10.2); Carbon Dioxide 28 mmol/L (22-30); Chloride 104 mmol/L (98-107); Estimated Glomerular Filt Rate 45; Glucose 97 mg/dL (65-110); Phosphorus 3.9 mg/dL (2.5-4.5); Potassium 4.7 mmol/L (3.4-5.0); Sodium 140 mmol/L (137-145)
[2025-01-13 14:11] LABS: Creatinine Urine 101.3 mg/dL
[2025-01-13 14:13] LABS: Total Protein Urine Random < 5 mg/dL; Ur Ttl Prot Creatinine Ratio < 0.05 mg/mg (0-0.20)
[2025-01-13 14:34] LABS: Parathyroid Intact 76.6 pg/mL (14.5-75.2)
[2025-01-13 14:48] LABS: Hepatitis B Surface Antigen Negative (Negative)
[2025-01-13 14:54] LABS: HAV RESULT Negative (Negative); Hepatitis B Core IgM Result Negative (Negative)
[2025-01-13 15:06] LABS: Hepatitis C Virus Antibody Negative (Negative)
== END 2025-01-13 08:32 | disposition home or self-care (01) ==
LOC: ANHGOSHLAB 08:32
PROVIDERS: PCP Family Medicine; Visit Provider Internal Medicine Nephrology
DX: R74.01 Elevation of levels of liver transaminase levels (principal); E11.40 Type 2 diabetes mellitus with diabetic neuropathy, unspecified; N18.31 Chronic kidney disease, stage 3a; E11.22 Type 2 diabetes mellitus with diabetic chronic kidney disease
CPT/HCPCS: 36415; 80053; 80074; 82570; 83036; 83970; 84100; 84156; 85027

== ENCOUNTER 2025-02-08 08:20 | Outpatient (CLI) | payer MEDICARE, SELFPAY ==
--- OUTSIDE RECORDS SUMMARY | 2025-02-08 08:28 | XMS_ITS | Clinical Summary ---
Author Organization [facility] Address [address] [place] [address] Phone Care Team Providers Care Rn Flight Name Role Phone Saravanan Brody DO Primary Care Provider [phone] Allergies No known active allergies Medications Medication Sig Dispensed Refills Start Date End Date Status triamcinolone (KENALOG) 0.1 % cream as dir 0 05/27/2018 Active lovastatin (MEVACOR) 10 MG tablet 1 daily 0 05/27/2018 Active furosemide (LASIX) 20 MG tablet 1 daily 0 05/27/2018 Active timolol (TIMOPTIC) 0.5 % ophthalmic solution as dir 0 05/27/2018 Active hydrocortisone 0.5 % cream as dir 0 05/27/2018 Active losartan (COZAAR) 50 MG tablet TAKE 1 TABLET BY MOUTH ONCE DAILY 90 tablet 12 08/24/2019 Active Cholecalciferol (VITAMIN D3) 50 MCG (2000 UT) chewable tablet Chew 04/29/2012 Active B Complex-Folic Acid (B COMPLEX FORMULA 1) tablet Take 1 tablet by mouth daily 04/29/2012 Active oxiconazole (OXISTAT) 1 % cream APPLY TOPICALLY TO RASH AREA ON GROIN DAILY 11/09/2019 Active tamsulosin (FLOMAX) 0.4 MG 24 hr capsule Take 0.4 mg by mouth 1 (one) time each day 09/14/2019 Active Accu-Chek Softclix Lancets lancets USE TO CHECK BLOOD SUGAR ONCE DAILY 09/26/2020 Active Accu-Chek Joleen Plus test strip USE TO CHECK BLOOD SUGAR ONCE DAILY 09/26/2020 Active glipiZIDE (GLUCOTROL) 5 MG tablet Take 5 mg by mouth 2 (two) times a day before meals Active Janumet XR 100-1000 MG tablet sustained-release 24 hour 08/29/2021 Active Active Problems Problem Noted Date Diagnosed Date Type 2 diabetes mellitus without complication Stage 3a chronic kidney disease 03/16/2018 Essential (primary) hypertension 03/16/2018 Hyperkalemia 03/16/2018 Hyperlipidemia 03/16/2018 Immunizations Name Administration Dates Next Due Influenza TIV (IM) 11/19/2021(Deferred: Patient Refused) Pneumococcal Conjugate 11/19/2021(Deferred: Isa ent Refused) Family History Medical History Relation Comments Malignant neoplastic disease Father Relation Status Comments Father Social History Tobacco Use Types Packs/Day Years Used Date Smoking Tobacco: Never Smokeless Tobacco: Never Alcohol Use Standard Drinks/Week Comments Not Currently 0 (1 standard drink = 0.6 oz pur e alcohol) Sex and Gender Information Value Date Recorded Sex Assigned at Not on file Gender Identity Not on file Sexual Orientation Not on file Last Filed Vital Signs Vital Sign Reading Time Taken Comments Blood Pressure 122/64 11/19/2021 1:19 PM RECTIFIER OPERATOR Pulse 84 11/19/2021 1:19 PM RECTIFIER OPERATOR Temperature 36.5 C (97.7 F) 11/19/2021 1:19 PM RECTIFIER OPERATOR Respiratory Rate - - Oxygen Saturation - - Inhaled Oxygen Concentration - - Weight 117 kg (258 lb) 11/19/2021 1:19 PM RECTIFIER OPERATOR Height 182.9 cm (6') 11/19/2021 1:19 PM RECTIFIER OPERATOR Body Mass Index 34.99 11/19/2021 1:19 PM RECTIFIER OPERATOR Plan of Treatment Health Maintenance Due Date Last Done Comments Pneumococcal PPSV23/PCV13 65 + Years / Low and Medium Risk (1 of 4 - PCV) 2002 Influenza Vaccine (Season Ended) 2025 Care Teams Rn Flight Relationship Specialty Start Date End Date Saravanan Brody DO [address] [place] [address] PCP - General Internal Medicine 11/22/19
[2025-02-08 17:00] LABS: Anion Gap 9 mmol/L (4-12); Blood Urea Nitrogen 53 mg/dL (9-20); Calcium 9.5 mg/dL (8.4-10.2); Carbon Dioxide 30 mmol/L (22-30); Chloride 101 mmol/L (98-107); Estimated Glomerular Filt Rate 46; Glucose 116 mg/dL (65-110); Potassium 4.7 mmol/L (3.4-5.0); Sodium 140 mmol/L (137-145)
== END 2025-02-08 08:21 | disposition home or self-care (01) ==
LOC: ANHGOSHLAB 08:21
PROVIDERS: PCP Family Medicine; Visit Provider Internal Medicine Nephrology
DX: N18.31 Chronic kidney disease, stage 3a (principal)
CPT/HCPCS: 36415; 80048

== ENCOUNTER 2025-03-09 14:33 | Outpatient (CLI) | payer MEDICARE, SELFPAY ==
--- OUTSIDE RECORDS SUMMARY | 2025-03-09 14:37 | XMS_ITS | Clinical Summary ---
Author Organization [facility] Address [address] [place] [address] Phone Care Team Providers Care Rig Operator Name Role Phone Saravanan Brody DO Primary Care Provider [phone] Allergies No known active allergies Medications triamcinolone (KENALOG) 0.1 % cream as dir 0 8 Active lovastatin (MEVACOR) 10 MG tablet 1 daily 0 8 Active furosemide (LASIX) 20 MG tablet 1 daily 0 8 Active timolol (TIMOPTIC) 0.5 % ophthalmic solution as dir 0 8 Active hydrocortisone 0.5 % cream as dir 0 8 Active losartan (COZAAR) 50 MG tablet TAKE 1 TABLET BY MOUTH ONCE DAILY 90 tablet 12 9 Active Cholecalciferol (VITAMIN D3) 50 MCG (1999) chewable tablet Chew 2 Active B Complex-Folic Acid (B COMPLEX FORMULA 1) tablet Take 1 tablet by mouth daily 2 Active oxiconazole (OXISTAT) 1 % cream APPLY TOPICALLY TO RASH AREA ON GROIN DAILY 0 Active tamsulosin (FLOMAX) 0.4 MG 24 hr capsule Take 0.4 mg by mouth 1 (one) time each day 9 Active Accu-Chek Softclix Lancets lancets USE TO CHECK BLOOD SUGAR ONCE DAILY 0 Active Accu-Chek Joleen Plus test strip USE TO CHECK BLOOD SUGAR ONCE DAILY 0 Active glipiZIDE (GLUCOTROL) 5 MG tablet Take 5 mg by mouth 2 (two) times a day before meals Active Janumet XR 100-1000 MG tablet sustained-relea se 24 hour Active Active Problems Problem Noted Date Diagnosed Date Type 2 diabetes mellitus without complication Stage 3a chronic kidney disease 03/16/2018 Essential (primary) hypertension 03/16/2018 Hyperkalemia 03/16/2018 Hyperlipidemia 03/16/2018 Immunizations Immunization Administration Dates Next Due Influenza TIV (IM) [...] Recorded Sex Assigned at Not on file Legal Sex Male 9:43 AM MST Gender Identity Not on file Sexual Orientation Not on file Last Filed Vital Signs Vital Sign Reading Time Taken Comments Blood Pressure 122/64 11/19/2021 1:19 PM COOK FRUIT Pulse 84 11/19/2021 1:19 PM COOK FRUIT Temperature 36.5 C (97.7 F) 11/19/2021 1:19 PM COOK FRUIT Respiratory Rate - - Oxygen Saturation - - Inhaled Oxygen Concentration - - Weight 117 kg (258 lb) 11/19/2021 1:19 PM COOK FRUIT Height 182.9 cm (6') 11/19/2021 1:19 PM COOK FRUIT Body Mass Index 34.99 11/19/2021 1:19 PM COOK FRUIT Plan of Treatment Health Maintenance Due Date Last Done Comments Diabetic Foot Exam 1947 Ophthalmology Exam 1945 Pneumococcal PPSV23/PCV13 65 + Years / High and Highest Risk (1 of 5 - PCV) 01/27/1956 Influenza Vaccine (Season Ended) 2025 Insurance [employer] MED[employer]ARE Care Teams Rig Operator Relationship Specialty Start Date End Date Saravanan Brody DO [address] [place] [id number] PCP - General Internal Medicine 11/22/19
--- NOTE | 2025-03-09 14:53 | ECHO_ITS ---
Patient Info Name: Felipe Calle Age: 89 years : 1935 Gender: Male Ht: 72 in Wt: 247 lbs BSA: 2.42 m2 HR: 82 bpm BP: 147 / 72 mmHg Technical Quality: Fair Exam Date: 03/09/2025 3:03 PM Exam Location: Echo Lab Patient Status: Outpatient Admit Date: 03/09/2025 Staff Ordering Physician: Lele Harmon MD Power Supply Engineer: Noni Key RDCS Attending Provider: Lele Harmon MD Referring Physician: Eden KUMAR; Exam Type: CA echo doppler color flow Study Info Indications R60.9 - Edema, unspecified Complete two-dimensional, color flow and Doppler transthoracic echocardiogram is performed. Summary 1. Complete two-dimensional, color flow and Doppler transthoracic echocardiogram is performed. 2. Left ventricular chamber dimension is normal. 3. Left ventricular systolic function is normal, estimated at 60-65%. 4. There is moderate concentric increased left ventricular wall thickness. 5. The left ventricular diastolic function is grade I diastolic dysfunction. 6. E/e' 17 is elevated. 7. Left atrial chamber dimension is mildly enlarged. 8. There is mild aortic valve sclerosis. 9. There is trace tricuspid valve regurgitation. 10. No pulmonary hypertension, estimated pulmonary arterial systolic pressure is 27 mmHg. 11. There is trivial pericardial effusion. Left Ventricle E/e' 17 is elevated. Left ventricular chamber dimension is normal. Left ventricular systolic function is normal, estimated at 60-65%. There is moderate concentric increased left ventricular wall thickness. The left ventricular diastolic function is grade I diastolic dysfunction. Right Ventricle Right ventricular systolic function is normal and with normal TAPSE 2.1 cm. Right ventricular chamber dimension is normal. Left Atria Left atrial chamber dimension is mildly enlarged. Right Atria Right atrial chamber dimension is normal. Aortic Valve The aortic valve is trileaflet. There is mild aortic valve sclerosis. There is no aortic valve stenosis. There is no aortic valve regurgitation. Pulmonic Valve There is no pulmonic regurgitation. Mitral Valve There is no mitral valve stenosis. There is no mitral valve regurgitation. Tricuspid Valve There is trace tricuspid valve regurgitation. No pulmonary hypertension, estimated pulmonary arterial systolic pressure is 27 mmHg. Pericardium/Pleural There is trivial pericardial effusion. Inferior Vena Cava Normal inferior vena cava with >50% collapse upon inspiration consistent with normal right atrial pressure, 5 mmHg. Aorta The aortic root size at the sinus of Valsalva is normal. Left Ventricular Outflow Tract Name Value Normal LVOT 2D LVOT Diameter 1.8 cm LVOT Doppler LVOT Peak Gradient 4 mmHg LVOT Mean Gradient 2 mmHg LVOT VTI 21 cm LVOT VTI/AV VTI Ratio 0.7 LVOT Stroke Volume 56 ml LVOT CO 10.9 l/min LVOT CI 4.5 l/min/m2 Pulmonic Valve Name Value Normal PV Doppler PV Peak Gradient 4 mmHg Mitral Valve Name Value Normal MV Doppler MV Decel Toombs 424 cm/s2 MV PHT 67 ms MV Area (PHT) 3.3 cm2 4.0-5.0 MV Diastolic Function MV E Peak Velocity 97 cm/s MV A Peak Velocity 123 cm/s MV E/A 0.8 MV Decel Time 230 ms MV Annular TDI MV E/e' (Septal) 16.6 <=8.0 MV E/e' (Lateral) 17.4 <=8.0 MV E/e' (Average) 17.0 Tricuspid Valve Name Value Normal TV Regurgitation Doppler TR Peak Velocity 235 cm/s TR Peak Gradient 22 mmHg Estimated PAP/RSVP RA Pressure 5 mmHg <=5 PA Systolic Pressure 27 mmHg <36 RV Systolic Pressure 27 mmHg <36 Aorta Name Value Normal Ascending Aorta Ao Root Diameter (MM) 3.2 cm Ao Root Diam Index (MM) 1.3 cm/m2 Aortic Valve Name Value Normal AV Doppler AV Peak Velocity 141 cm/s AV Peak Gradient 8 mmHg AV Mean Gradient 4 mmHg AV VTI 32 cm AV Area (Cont Eq VTI) 1.8 cm2 >=3.0 AV Area (Cont Eq Wilmer) 1.8 cm2 AV Regurgitation 2D LVOT Area 2.6 cm2 Ventricles Name Value Normal LV Dimensions 2D/MM IVS Diastolic Thickness (2D) 1.7 cm 0.6-1.0 LVID Diastole (2D) 4.6 cm 4.2-5.8 LVIW Diastolic Thickness (2D) 1.4 cm 0.6-1.0 LVID Systole (2D) 3.5 cm 2.5-4.0 LVOT Diameter 1.8 cm LV Mass (2D Cubed) 296.75 g 88.00-224.00 LV Mass Index (2D Cubed) 123 g/m2 49-115 Relative Wall Thickness (2D) 0.60 LV Fractional Shortening/Ejection Fraction 2D/MM LV Fractional Shortening (2D) 24 % 25-43 LV EF (2D Teicholz) 47 % 52-72 LV Diastolic Volume (4C MOD) 98 ml LV EF (4C MOD) 65 % LV Diastolic Volume (2C MOD) 63 ml LV EF (2C MOD) 49 % LV Diastolic Volume (BP MOD) 79 ml 62-150 LV Diastolic Volume Index (BP MOD) 33 ml/m2 34-74 LV Systolic Volume (BP MOD) 33 ml 21-61 LV Systolic Volume Index (BP MOD) 14 ml/m2 11-31 LV EF (BP MOD) 58 % 52-72 LV Diastolic Length (4C) 7.8 cm LV Systolic Length (4C) 6.0 cm LV Stroke Volume (4C MOD) 63 ml RV Dimensions 2D/MM RVID Diastole (2D) 3.4 cm 2.5-3.5 Atria Name Value Normal LA Dimensions LA Dimension (MM) 3.4 cm 3.0-4.1 LA Volume (4C A-L) 75 ml LA Volume (BP A-L) 67 ml RA Dimensions RA Area (4C) 11.4 cm2 <=18.0 Report Signatures
== END 2025-03-09 14:34 | disposition home or self-care (01) ==
PROVIDERS: PCP Family Medicine; Visit Provider Internal Medicine Nephrology
DX: R93.1 Abnormal findings on diagnostic imaging of heart and coronary circulation (principal); R60.9 Edema, unspecified
CPT/HCPCS: 93306

== ENCOUNTER 2025-03-29 15:58 | Outpatient (RCR) | payer MEDICARE, SELFPAY | END 2025-06-20 10:28 | disposition home or self-care (01) | LOC: ANHDMC 15:58 | PROVIDERS: PCP Family Medicine; Visit Provider Family Medicine | DX: E11.40 Type 2 diabetes mellitus with diabetic neuropathy, unspecified (principal); E11.65 Type 2 diabetes mellitus with hyperglycemia; Z71.89 Other specified counseling | CPT/HCPCS: G0108 ==

== ENCOUNTER 2025-05-18 07:11 | Outpatient (RCR) | payer MEDICARE, SELFPAY ==
[2025-03-30 11:45] VITALS: BMI 34.0
== END 2025-06-28 23:59 | disposition home or self-care (01) ==
LOC: ANHWOC 07:11
PROVIDERS: PCP Family Medicine; Visit Provider Podiatrist Foot & Ankle Surgery
DX: Z48.00 Encounter for change or removal of nonsurgical wound dressing (principal); R60.1 Generalized edema; L97.921 Non-pressure chronic ulcer of unspecified part of left lower leg limited to breakdown of skin
CPT/HCPCS: 99213; 99214; G0463

== ENCOUNTER 2025-07-13 15:17 | Outpatient (CLI) | payer MEDICARE, SELFPAY ==
--- OUTSIDE RECORDS SUMMARY | 2025-07-13 15:41 | XMS_ITS | Clinical Summary ---
Author Organization [facility] Address [address] [place] [address] Phone Care Team Providers Care Social Science Teacher Name Role Phone Saravanan Brody DO Primary Care Provider [phone] Allergies No known active allergies Medications triamcinolone [...] Comments Blood Pressure 122/64 11/19/2021 1:19 PM KNIFE GRINDER Pulse 84 11/19/2021 1:19 PM KNIFE GRINDER Temperature 36.5 C (97.7 F) 11/19/2021 1:19 PM KNIFE GRINDER Respiratory Rate - - Oxygen Saturation - - Inhaled Oxygen Concentration - - Weight 117 kg (258 lb) 11/19/2021 1:19 PM KNIFE GRINDER Height 182.9 cm (6') 11/19/2021 1:19 PM KNIFE GRINDER Body Mass Index 34.99 11/19/2021 1:19 PM KNIFE GRINDER Plan of Treatment Health Maintenance Due Date Last Done Comments Pneumococcal PPSV23/PCV13 65 + Years / Low and Medium Risk (1 of 2 - PCV) 1987 Influenza Vaccine (#1) 2025 Insurance [employer] MED[employer]ARE Care Teams Social Science Teacher Relationship Specialty Start Date End Date Saravanan Brody DO [address] [place] [address] PCP - General Internal Medicine 11/22/19
[2025-07-13 19:03] LABS: Total Protein Urine Random 7 mg/dL; Ur Ttl Prot Creatinine Ratio 0.13 mg/mg (0-0.20)
[2025-07-13 19:11] LABS: Albumin Level 4.2 g/dL (3.5-5.1); Anion Gap 8 mmol/L (4-12); Blood Urea Nitrogen 39 mg/dL (9-20); Calcium 9.1 mg/dL (8.4-10.2); Carbon Dioxide 29 mmol/L (22-30); Chloride 101 mmol/L (98-107); Estimated Glomerular Filt Rate 42; Glucose 185 mg/dL (65-110); Potassium 4.7 mmol/L (3.4-5.0); Sodium 138 mmol/L (137-145)
[2025-07-13 19:15] LABS: Hematocrit 35.7 % (42.0-52.0); Hemoglobin 11.2 g/dL (14.0-18.0); Mean Corpuscular HGB Conc 31.4 g/dl (32-36); Mean Corpuscular Hemoglobin 30.0 pg (26-34); Mean Corpuscular Volume 95.7 fl (80-100); Platelet Count Result 210 k/mm3 (150-375); Red Blood Count 3.73 M/mm3 (4.6-6.20); White Blood Count 10.0 K/mm3 (4.5-10.0)
[2025-07-13 19:25] LABS: Parathyroid Intact 80.5 pg/mL (14.5-75.2)
== END 2025-07-13 15:18 | disposition home or self-care (01) ==
LOC: ANHGOSHLAB 15:18
PROVIDERS: PCP Family Medicine; Visit Provider Internal Medicine Nephrology
DX: I12.9 Hypertensive chronic kidney disease with stage 1 through stage 4 chronic kidney disease, or unspecified chronic kidney disease (principal); N18.31 Chronic kidney disease, stage 3a
CPT/HCPCS: 36415; 80069; 82570; 83970; 84156; 85027

== ENCOUNTER 2025-09-01 09:09 | Outpatient (CLI) | payer MEDICARE, SELFPAY ==
--- OUTSIDE RECORDS SUMMARY | 2025-09-01 09:38 | XMS_ITS | Clinical Summary ---
Author Organization [facility] Address [address] [place] [address] Phone Care Team Providers Care Allied Health Instructor Name Role Phone Saravanan Brody DO Primary Care Provider [phone] Allergies No known active allergies Medications triamcinolone [...] Comments Blood Pressure 122/64 11/19/2021 1:19 PM SUPERVISOR COFFEE Pulse 84 11/19/2021 1:19 PM SUPERVISOR COFFEE Temperature 36.5 C (97.7 F) 11/19/2021 1:19 PM SUPERVISOR COFFEE Respiratory Rate - - Oxygen Saturation - - Inhaled Oxygen Concentration - - Weight 117 kg (258 lb) 11/19/2021 1:19 PM SUPERVISOR COFFEE Height 182.9 cm (6') 11/19/2021 1:19 PM SUPERVISOR COFFEE Body Mass Index 34.99 11/19/2021 1:19 PM SUPERVISOR COFFEE Plan of Treatment Health Maintenance Due Date Last Done Comments Pneumococcal PPSV23/PCV13 65 + Years / Low and Medium Risk (1 of 2 - PCV) 1987 Influenza Vaccine (#1) 2025 Insurance [employer] MED[employer]ARE Care Teams Allied Health Instructor Relationship Specialty Start Date End Date Saravanan Brody DO [address] [place] [address] PCP - General Internal Medicine 11/22/19
[2025-09-01 19:12] LABS: Hemoglobin A1C 7.7 % (<5.7)
[2025-09-01 19:22] LABS: Alanine Aminotransferase 23 U/L (6-50); Albumin Level 4.1 g/dL (3.5-5.1); Alkaline Phosphatase 78 U/L (38-126); Anion Gap 8 mmol/L (4-12); Aspartate Amino Transferase 46 U/L (17-59); Bilirubin,Total 0.6 mg/dL (0.2-1.3); Blood Urea Nitrogen 42 mg/dL (9-20); Calcium 9.9 mg/dL (8.4-10.2); Carbon Dioxide 28 mmol/L (22-30); Chloride 103 mmol/L (98-107); Estimated Glomerular Filt Rate 50; Glucose 133 mg/dL (65-110); Potassium 4.6 mmol/L (3.4-5.0); Sodium 139 mmol/L (137-145); Total Protein 6.9 g/dL (6.3-8.2)
[2025-09-01 20:30] LABS: Vitamin B12 922.0 pg/mL (239-931)
== END 2025-09-01 09:10 | disposition home or self-care (01) ==
LOC: ANHGOSHLAB 09:09
PROVIDERS: PCP Family Medicine; Visit Provider Family Medicine
DX: I12.9 Hypertensive chronic kidney disease with stage 1 through stage 4 chronic kidney disease, or unspecified chronic kidney disease (principal); N18.30 Chronic kidney disease, stage 3 unspecified; E78.5 Hyperlipidemia, unspecified; E11.22 Type 2 diabetes mellitus with diabetic chronic kidney disease; R01.1 Cardiac murmur, unspecified; E11.40 Type 2 diabetes mellitus with diabetic neuropathy, unspecified; E55.9 Vitamin D deficiency, unspecified; E66.9 Obesity, unspecified; Z68.33 Body mass index [BMI] 33.0-33.9, adult
CPT/HCPCS: 36415; 80053; 82306; 82607; 83036

== ENCOUNTER 2025-10-18 16:00 | Outpatient (RCR) | payer MEDICARE, SELFPAY | END 2025-10-20 11:09 | disposition home or self-care (01) | LOC: ANHDMC 16:00 | PROVIDERS: PCP Family Medicine; Visit Provider Family Medicine | DX: E11.40 Type 2 diabetes mellitus with diabetic neuropathy, unspecified (principal); E11.65 Type 2 diabetes mellitus with hyperglycemia; Z71.89 Other specified counseling | CPT/HCPCS: G0108 ==